=== PATIENT | female | born 1950 | race Caucasian/White ===

== ENCOUNTER 2025-04-22 10:12 | Inpatient (IN) | payer MEDICARE, OTHER ==
[2025-04-22] MEDS: DILTIAZEM 5 MG/ML 5 ML VIAL IVP STA (10:50)
[2025-04-22 11:00] LABS: African American GFR (CKD) 67 (>60 ml/min/1.73 sqM); Anion Gap 26 mmol/L; Blood Urea Nitrogen 25 mg/dL (7-17); Calcium 9.4 mg/dL (8.4-10.2); Chloride 97 mmol/L (98-107); Glucose 140 mg/dL (74-99); Non-African American GFR(CKD) 58 (>60 ml/min/1.73 sqM); Sodium 130 mmol/L (137-145)
[2025-04-22] MEDS: DILTIAZEM 125 MG in DEXTROSE 5% IN WATER 100 ML IV SCH (11:05)
--- NOTE | 2025-04-22 11:08 | XR ---
EXAMINATION TYPE: XR chest 2V DATE OF EXAM: 04/22/2025 11:01 AM COMPARISON: None. CLINICAL INDICATION: Female, 74 years old with history of difficulty breathing, TECHNIQUE: XR chest 2V view(s) obtained. FINDINGS: The heart size is mildly prominent. The pulmonary vasculature is prominent. Diffuse increased lung markings are present. Correlate for congestive heart failure. Small bilateral pleural effusions are present. IMPRESSION: 1. Diffuse increased lung markings with small bilateral pleural effusions. Correlate for congestive h eart failure. Follow-up recommended. [facility], , 04/22/2025 11:06 AM
[2025-04-22 11:09] LABS: NT-Pro-B-Type Natriuretic Pept 6500 pg/mL
[2025-04-22 11:11] LABS: INR 1.9 (<1.2); Prothrombin Time 19.1 sec (10.0-12.5)
[2025-04-22 11:21] LABS: Carbon Dioxide 7 mmol/L (22-30); Potassium 4.8 mmol/L (3.5-5.1)
[2025-04-22 11:22] LABS: ALT 71 U/L (4-34); AST 126 U/L (14-36); Albumin 4.3 g/dL (3.5-5.0); Alkaline Phosphatase 123 U/L (38-126); Magnesium 2.2 mg/dL (1.6-2.3); Total Protein 7.3 g/dL (6.3-8.2)
[2025-04-22 11:49] LABS: Partial Thromboplastin Time 20.8 sec (22.0-30.0)
[2025-04-22 11:58] LABS: Basophils # (A) 0.02 10*3/uL (0.00-0.10); Basophils % (A) 0.2 %; Eosinophils # (A) 0.00 10*3/uL (0.04-0.35); Eosinophils % (A) 0.0 %; HCT 43.9 % (37.2-46.3); HGB 14.6 g/dL (12.0-15.0); Lymphocytes # (A) 0.60 10*3/uL (0.90-5.00); Lymphocytes % (A) 7.3 %; MCH 31.7 pg (27.0-32.0); MCHC 33.3 g/dL (32.0-37.0); MCV 95.4 fL (80.0-97.0); Monocytes # (A) 0.78 10*3/uL (0.20-1.00); Monocytes % (A) 9.5 %; Neutrophils # (A) 6.75 10*3/uL (1.80-7.70); Neutrophils % (A) 82.5 %; Platelet Count 182 10*3/uL (140-440); RBC 4.60 10*6/uL (4.10-5.20); RDW 14.1 % (11.5-14.5); WBC 8.19 10*3/uL (4.50-10.00)
--- NOTE | 2025-04-22 13:42 | CT ---
EXAMINATION TYPE: CT chest angio for PE DATE OF EXAM: 04/22/2025 12:41 PM COMPARISON: None. CLINICAL INDICATION: Female, 74 years old with history of elevated d-dimer, Elevated D-dimer., TECHNIQUE: CT of the chest is performed on a spiral scan at 2 mm thick sections. Study is performed with intravenous contrast timed for evaluation for pulmonary embolism. This will limit additional po rtions of the evaluation. 10mm MIP images reconstructed by the technologist are reviewed on the comp uter in the coronal and sagittal planes. Contrast used:80 ml mL of Isovue 370 with IV Contrast, (none if empty) Oral contrast used: (none if empty) CT DLP: Combined DLP of 895 mGycm, Automated exposure control for dose reduction was used. FINDINGS: No persistent filling defects are evident to suggest an acute pulmonary embolism. No mediastinal or hilar adenopathy enlarged by CT criteria is evident. The ascending aorta diameter at the level of the main pulmonary artery is 3.2 cm. The main pulmonary artery diameter at the bifurcation is 2.6 cm. There is a moderate right pleural effusion. Small left pleural effusion is present. Some compressive atelectasis adjacent pleural effusions. Moderate coronary artery calcifications present. Limited CT sections were through the upper abdomen. Upper abdomen appears unremarkable. IMPRESSION: 1. Moderate right and small left pleural effusion with adjacent compressive atelectasis. 2. No acute pulmonary embolism [facility], , 04/22/2025 1:39 PM
--- NOTE | 2025-04-22 13:47 | CT ---
EXAMINATION TYPE: CT abdomen pelvis w con DATE OF EXAM: 04/22/2025 12:41 PM COMPARISON: None. CLINICAL INDICATION: Female, 74 years old with history of liver failure, Liver failure. TECHNIQUE: Axial images were obtained from above the diaphragm to the pubic rami in the axial plane a t 5 mm thick sections. Reconstructed images are reviewed on the computer in the coronal plane. CONTRAST: 80 ml mL of Isovue 300. Study performed without Oral Contrast DLP: Combined DLP of 895 mGycm, Automated exposure control for dose reduction was used. FINDINGS: Limited CT sections are obtained the lung bases. CT CTA chest report same date. CT ABDOMEN: Liver: There is mild fatty change liver. Spleen: Normal Pancreas: Normal Adrenal glands: The adrenal glands are normal. Gallbladder: Normal. Some minimal fluid may be in the gallbladder bed fossa adjacent to the gallbladd er. Kidneys: No masses are evident. No hydronephrosis is present. Tiny cortical renal cysts on the righ t kidney. Delayed images were obtained through the kidneys, which remain unremarkable. Aorta: Vascular calcification is within the aorta. Abdominal aortic aneurysm is present with AP dime nsion of 3.3 cm in transverse dimension 3.8 cm within the midportion. This terminates above the bifur cation Inferior vena cava: Normal. CT PELVIS: Loops of bowel within the abdomen and pelvis are normal. This study is without oral contrast limi ting bowel evaluation. Appendix: Normal as visualized. Urinary bladder: Normal. Genitourinary structures: Uterus appears unremarkable. Adnexa appear normal. Osseous structures: No suspicious lytic or sclerotic lesions. IMPRESSION: 1. Abdominal aortic aneurysm mid abdominal aorta. Transverse dimension is 3.8 cm. 2. Mild fatty infiltration of the liver. 3. Minimal fluid may be adjacent to the gallbladder the gallbladder bed fossa. Correlate for clinical symptoms of acute cholecystitis. [facility], , 04/22/2025 1:45 PM
[2025-04-22] MEDS ORDERED: NALOXONE 0.4 MG/ML 1 ML VIAL IV PRN (14:48)
--- NOTE | 2025-04-22 14:48 | ED ---
SOB HPI - General Chief Complaint: Shortness of Breath Stated Complaint: Afib/shortness of breath Time Seen by Provider: 04/22/25 10:20 Source: patient, EMS Mode of arrival: EMS Limitations: no limitations - History of Present Illness Initial Comments: 74-year-old female presents emergency department with new onset A-fib. Patient reports that for the past week she has not been feeling well. She went into a clinic and they found that the patient was in A-fib with RVR. She has no history of A-fib. States that she does not have any medical diagnoses, does not take any medications and does not see a doctor. She does report feeling short of breath. States that she has had significant lower extremity edema that started within the past 2 days. She denies any chest pain. No fevers or cough. States that her shortness of breath is worse when she tries to lay flat at night. Patient admits to a glass of wine 4-5 times per week. No abdominal pain. No diarrhea. No other alleviating, precipitating modifying factors - Related Data Previous Rx's Medication Instructions Recorded Amiodarone [Cordarone] 200 mg PO BID #60 tab 04/27/25 Apixaban [Eliquis] 5 mg PO BID #60 tab 04/27/25 Furosemide [Lasix] 40 mg PO DAILY #30 tab 04/27/25 Losartan [Cozaar] 25 mg PO DAILY #30 tab 04/27/25 Metoprolol Tartrate [Lopressor] 50 mg PO TID #90 tab 04/27/25 Spironolactone [Aldactone] 25 mg PO DAILY #30 tab 04/27/25 Allergies Allergy/AdvReac Type Severity Reaction Status Date / Time No Known Allergies Allergy Verified 04/22/25 11:16 Review of Systems ROS Statement: Those systems with pertinent positive or pertinent negative responses have been documented in the HPI. ROS Other: All systems not noted in ROS Statement are negative. Past Medical History Past Medical History: No Reported History History of Any Multi-Drug Resistant Organisms: None Reported Past Surgical History: No Surgical Hx Reported Past Psychological History: No Psychological Hx Reported Smoking Status: Former smoker Past Alcohol Use History: Rare Past Drug Use History: None Reported - Past Family History Brother(s) Additional Family Medical History / Comment(s): brain aneurysm Father Family Medical History: Myocardial Infarction ([place]) General Exam Limitations: no limitations General appearance: alert, in no apparent distress Head exam: Present: atraumatic, normocephalic, normal inspection Eye exam: Present: normal appearance, PERRL, EOMI. Absent: scleral icterus, conjunctival injection, periorbital swelling ENT exam: Present: normal exam, mucous membranes moist Neck exam: Present: normal inspection. Absent: tenderness, meningismus, lympha denopathy Respiratory exam: Present: rales, decreased breath sounds. Absent: respiratory distress, wheezes, rhonchi, stridor Cardiovascular Exam: Present: tachycardia, irregular rhythm, normal heart sounds. Absent: systolic murmur, diastolic murmur, rubs, gallop, clicks GI/Abdominal exam: Present: soft, normal bowel sounds. Absent: distended, tenderness, guarding, rebound, rigid Extremities exam: Present: full ROM, normal capillary refill, pedal edema. Absent: tenderness, joint swelling, calf tenderness Back exam: Present: normal inspection Neurological exam: Present: alert, oriented X3, CN II-XII intact Psychiatric exam: Present: normal affect, normal mood Skin exam: Present: warm, dry, intact, normal color. Absent: rash Course Vital Signs 04/22/25 04/22/25 04/22/25 10:14 10:22 10:23 Temperature 97.9 F Pulse Rate 56 L 154 H Pulse Rate [ Director Cardiovascular ] Respiratory 20 22 Rate Blood Pressure 229/193 O2 Sat by Pulse 96 95 Oximetry 04/22/25 04/22/25 04/22/25 10:38 10:50 11:35 Temperature Pulse Rate 168 H 151 H Pulse Rate [ 183 H Director Cardiovascular ] Respiratory 19 Rate Blood Pressure 135/102 O2 Sat by Pulse 96 Oximetry 04/22/25 04/22/25 04/22/25 12:46 13:40 14:40 Temperature Pulse Rate 146 H 136 H 106 H Pulse Rate [ Director Cardiovascular ] Respiratory 25 H 19 18 Rate Blood Pressure 142/127 104/89 149/114 O2 Sat by Pulse 98 96 Oximetry 04/22/25 15:43 Temperature Pulse Rate 112 H Pulse Rate [ Director Cardiovascular ] Respiratory 20 Rate Blood Pressure 154/126 O2 Sat by Pulse 95 Oximetry Medical Decision Making - Medical Decision Making Was pt. sent in by a medical professional or institution (, PA, MACHINE OPERATOR HOP PICKER, urgent care, hospital, or custodial...) When possible be specific @ -Patient was sent in from the clinic Did you speak to anyone other than the patient for history (EMS, parent, family, police, friend...)? What history was obtained from this source @ -Spoke with for history Did you review nursing and triage notes (agree or disagree)? Why? @ -I reviewed and agree with nursing and triage notes Were old charts reviewed (outside hosp., previous admission, EMS record, old EKG, old radiological studies, urgent care reports/EKG's, custodial records)? Report findings @ -No old charts were reviewed Differential Diagnosis (chest pain, altered mental status, abdominal pain women, abdominal pain men, vaginal bleeding, weakness, fever, dyspnea, syncope, headache, dizziness, GI bleed, back pain, seizure, CVA, palpatations, mental health, musculoskeletal)? @ -Differential Palpitations Ventricular arrhythmias, atrial arrhythmias, myocardial infarction, anemia, thyrotoxicosis, electrolyte imbalance, hypokalemia, pulmonary embolism, pulmonary disease, drugs, alcohol, anxiety, stress.... This is not meant to be an all-inclusive list. EKG interpreted by me (3pts min.). @ -Yes and demonstrates A-fib with a rate of 176. QRS 133. QTc of 376. No acute ST segment elevations or depressions. Right bundle branch block. X-rays interpreted by me (1pt min.). @ -Yes which demonstrates pulmonary vascular congestion CT interpreted by me (1pt min.). @ -Yes which demonstrates pulmonary vascular congestion and minimal aortic aneurysm U/S interpreted by me (1pt. min.). @ -None done What testing was considered but not performed or refused? (CT, X-rays, U/S, labs)? Why? @ -None What meds were considered but not given or refused? Why? @ -None Did you discuss the management of the patient with other professionals (professionals i.e. DrJosh, PA, MACHINE OPERATOR HOP PICKER, lab, RT, psych nurse, clinical social work therapist, colleter, teacher, earth science technical officer, supervisor case loading)? Give summary @ -Spoke with Uzair from [facility], [place] who will admit the patient. Also spoke with Dr. Shukla from ICU Was smoking cessation discussed for >3mins.? @ -No Was critical care preformed (if so, how long)? @ -30 minutes for management of rapid A-fib Were there social determinants of health that impacted care today? How? (Homelessness, low income, unemployed, alcoholism, drug addiction, transportation, low edu. Level, literacy, decrease access to med. care, detention, rehab)? @ -No Was there de-escalation of care discussed even if they declined (Discuss DNR or withdrawal of care, Hospice)? DNR status @ -No What co-morbidities impacted this encounter? (DM, HTN, Smoking, COPD, CAD, Cancer, CVA, ARF, Chemo, Hep., AIDS, mental health diagnosis, sleep apnea, morbid obesity)? @ -None Was patient admitted / discharged? Hospital course, mention meds given and route, prescriptions, significant lab abnormalities, going to OR and other pertinent info. @ -Upon arrival patient seen and evaluated in bed 1. Thorough history and physical exam was performed. Patient placed on continuous pulse ox and cardiac monitoring. Laboratory studies are conducted. Chest x-ray was performed. Patient is sent over for CT of her chest, abdomen and pelvis. Gallbladder ultrasound is ordered. Patient is started on a Cardizem drip with improvement in her heart rate. Patient requires admission. Spoke with Uzair from [facility], [place] who will admit the patient as well as Dr. Hager from the ICU Undiagnosed new problem with uncertain prognosis? @ -No Drug Therapy requiring intensive monitoring for toxicity (Heparin, Nitro, Insulin, Cardizem)? @ -Cardizem Were any procedures done? @ -No Diagnosis/symptom? @ -Acute respiratory insufficiency, new onset congestive heart failure, new onset A-fib with RVR Acute, or Chronic, or Acute on Chronic? @ -Acute Uncomplicated (without systemic symptoms) or Complicated (systemic symptoms)? @ -Complicated Side effects of treatment? @ -No Exacerbation, Progression, or Severe Exacerbation? @ -No Poses a threat to life or bodily function? How? (Chest pain, [place], [place], pneumonia, PE, COPD, DKA, ARF, appy, cholecystitis, CVA, Diverticulitis, Homicidal, Suicidal, threat to staff... and all critical care pts) @ -Yes this patient is in heart failure with rapid A-fib - Lab Data Result diagrams: 04/25/25 05:25 04/27/25 07:08 Lab Results 07/24/25 07/24/25 07/24/25 Range/Units 10:31 10:31 10:31 WBC (4.50-10.00) 10*3/uL RBC (4.10-5.20) 10*6/uL Hgb (12.0-15.0) g/dL Hct (37.2-46.3) % MCV (80.0-97.0) fL MCH (27.0-32.0) pg MCHC (32.0-37.0) g/dL Plt Count (140-440) 10*3/uL MPV (9.5-12.2) fL Immature Gran % (Auto) % Neutrophils % % Lymphocytes % % Monocytes % % Eosinophils % % Basophils % % Immature Gran # (0.00-0.04) 10*3/uL Neutrophils # (1.80-7.70) 10*3/uL Lymphocytes # (0.90-5.00) 10*3/uL Monocytes # (0.20-1.00) 10*3/uL Eosinophils # (0.04-0.35) 10*3/uL Basophils # (0.00-0.10) 10*3/uL PT 19.1 H (10.0-12.5) sec INR 1.9 H (<1.2) APTT 20.8 L (22.0-30.0) sec D-Dimer 5.92 H (<0.60) mg/L FEU Sodium 130 L (137-145) mmol/L Potassium 4.8 (3.5-5.1) mmol/L Chloride 97 L (98-107) mmol/L Carbon Dioxide 7 L* (22-30) mmol/L Anion Gap 26 mmol/L BUN 25 H (7-17) mg/dL Creatinine 0.97 (0.52-1.04) mg/dL Est GFR (CKD-EPI)AfAm 67 (>60 ml/min/1.73 sqM) Est GFR (CKD-EPI)NonAf 58 (>60 ml/min/1.73 sqM) Glucose 140 H (74-99) mg/dL Lactic Ac Sepsis Rflx Plasma Lactic Acid Chung 10.4 H* (0.7-2.0) mmol/L Calcium 9.4 (8.4-10.2) mg/dL Magnesium 2.2 (1.6-2.3) mg/dL Total Bilirubin 2.8 H (0.2-1.3) mg/dL AST 126 H (14-36) U/L ALT 71 H (4-34) U/L Alkaline Phosphatase 123 (38-126) U/L Troponin I (0.000-0.034) ng/mL NT-Pro-B Natriuret Pep 6500 pg/mL Total Protein 7.3 (6.3-8.2) g/dL Albumin 4.3 (3.5-5.0) g/dL TSH (0.465-4.680) mIU/L 04/22/25 04/22/25 04/22/25 Range/Units 10:31 10:31 11:28 WBC (4.50-10.00) 10*3/uL RBC (4.10-5.20) 10*6/uL Hgb (12.0-15.0) g/dL Hct (37.2-46.3) % MCV (80.0-97.0) fL MCH (27.0-32.0) pg MCHC (32.0-37.0) g/dL Plt Count (140-440) 10*3/uL MPV (9.5-12.2) fL Immature Gran % (Auto) % Neutrophils % % Lymphocytes % % Monocytes % % Eosinophils % % Basophils % % Immature Gran # (0.00-0.04) 10*3/uL Neutrophils # (1.80-7.70) 10*3/uL Lymphocytes # (0.90-5.00) 10*3/uL Monocytes # (0.20-1.00) 10*3/uL Eosinophils # (0.04-0.35) 10*3/uL Basophils # (0.00-0.10) 10*3/uL PT (10.0-12.5) sec INR (<1.2) APTT (22.0-30.0) sec D-Dimer (<0.60) mg/L FEU Sodium (137-145) mmol/L Potassium (3.5-5.1) mmol/L Chloride (98-107) mmol/L Carbon Dioxide (22-30) mmol/L Anion Gap mmol/L BUN (7-17) mg/dL Creatinine (0.52-1.04) mg/dL Est GFR (CKD-EPI)AfAm (>60 ml/min/1.73 sqM) Est GFR (CKD-EPI)NonAf (>60 ml/min/1.73 sqM) Glucose (74-99) mg/dL Lactic Ac Sepsis Rflx Y Plasma Lactic Acid Chung (0.7-2.0) mmol/L Calcium (8.4-10.2) mg/dL Magnesium (1.6-2.3) mg/dL Total Bilirubin (0.2-1.3) mg/dL AST (14-36) U/L ALT (4-34) U/L Alkaline Phosphatase (38-126) U/L Troponin I 0.078 H* (0.000-0.034) ng/mL NT-Pro-B Natriuret Pep pg/mL Total Protein (6.3-8.2) g/dL Albumin (3.5-5.0) g/dL TSH 1.930 (0.465-4.680) mIU/L 04/22/25 Range/Units 11:51 WBC 8.19 (4.50-10.00) 10*3/uL RBC 4.60 (4.10-5.20) 10*6/uL Hgb 14.6 (12.0-15.0) g/dL Hct 43.9 (37.2-46.3) % MCV 95.4 (80.0-97.0) fL MCH 31.7 (27.0-32.0) pg MCHC 33.3 (32.0-37.0) g/dL Plt Count 182 (140-440) 10*3/uL MPV 12.3 H (9.5-12.2) fL Immature Gran % (Auto) 0.5 % Neutrophils % 82.5 % Lymphocytes % 7.3 % Monocytes % 9.5 % Eosinophils % 0.0 % Basophils % 0.2 % Immature Gran # 0.04 (0.00-0.04) 10*3/uL Neutrophils # 6.75 (1.80-7.70) 10*3/uL Lymphocytes # 0.60 L (0.90-5.00) 10*3/uL Monocytes # 0.78 (0.20-1.00) 10*3/uL Eosinophils # 0.00 L (0.04-0.35) 10*3/uL Basophils # 0.02 (0.00-0.10) 10*3/uL PT (10.0-12.5) sec INR (<1.2) APTT (22.0-30.0) sec D-Dimer (<0.60) mg/L FEU Sodium (137-145) mmol/L Potassium (3.5-5.1) mmol/L Chloride (98-107) mmol/L Carbon Dioxide (22-30) mmol/L Anion Gap mmol/L BUN (7-17) mg/dL Creatinine (0.52-1.04) mg/dL Est GFR (CKD-EPI)AfAm (>60 ml/min/1.73 sqM) Est GFR (CKD-EPI)NonAf (>60 ml/min/1.73 sqM) Glucose (74-99) mg/dL Lactic Ac Sepsis Rflx Plasma Lactic Acid Chung (0.7-2.0) mmol/L Calcium (8.4-10.2) mg/dL Magnesium (1.6-2.3) mg/dL Total Bilirubin (0.2-1.3) mg/dL AST (14-36) U/L ALT (4-34) U/L Alkaline Phosphatase (38-126) U/L Troponin I (0.000-0.034) ng/mL NT-Pro-B Natriuret Pep pg/mL Total Protein (6.3-8.2) g/dL Albumin (3.5-5.0) g/dL TSH (0.465-4.680) mIU/L Disposition Clinical Impression: New onset a-fib, Atrial fibrillation with RVR, Lactic acidosis, Transaminitis, Elevated INR, Congestive heart failure Disposition: ADMITTED IP TO THIS [facility] Condition: Critical Is patient prescribed a controlled substance at d/c from ED?: No Time of Disposition: 14:47 Decision to Admit Reason: Admit from EC Decision Date: 04/22/25 Decision Time: 14:47
[2025-04-22] MEDS ORDERED: MELATONIN 3 MG TABLET PO PRN (14:52)
[2025-04-22] MEDS ORDERED: DOCUSATE 100 MG CAP PO PRN (14:52)
[2025-04-22] MEDS ORDERED: ONDANSETRON 4 MG/2 ML VIAL IVP PRN (14:52)
--- NOTE | 2025-04-22 15:26 | P.HPIM ---
History of Present Illness H&P Date: 04/22/25 74 year old F with no significant PMH (has not seen a physician in 20+ years) presents to the ED after being sent from urgent care. She reports dry cough, shortness of breath and wheezing that has been ongoing for the past week. Symptoms initially attributed to change in weather but symptoms did not resolve. Reports PPD smoking for 20 years but quit 26 years ago. Drinks 1 glass of wine 4-5 times a week. She denies any alcohol withdrawal symptoms. Drinks 2 cups of coffee daily. Denies chest pain. No nausea or vomiting. No fever or chills. No abdominal pain, changes in urination or bowel habits. In the ED she underwent extensive evaluation. BP 229/193, HR 56 (as high as 183), T 97.9F, RR 20, 96% on RA. CBC, Coag panel, CMP significant for PT 19.1, INR 1.9, APTT 20.8, Na 130, Cl 97, bicarb 7, BUN 25, glu 140, T. Bili 2.8, AST 126, ALT 71. Lactic acid 10.4. BNP 6500. D-Dimer 5.92. CXR pulmonary vascular congestion. CTA chest neg PE, moderate right and left pleural effusion. CT AP shows abdominal aortic aneurysm 3.8 cm, mild fatty liver infiltration, minimal fluid adjacent to the GB. Patient was started on a Cardizem drip and admitted to ICU for further workup and management. General: no distress, appears at stated age Derm: warm, dry Head: atraumatic, normocephalic, symmetric Eyes: EOMI Mouth: no lip lesion, mucus membranes moist Cardiovascular: S1 S2 irreg tachy. No murmur. Lungs: Decreased BS bilaterally, no accessory muscle use Abd: Soft. Non tender to palpation Ext: no gross muscle atrophy, 2+ BL LE edema, no contractures Neuro: No FND Psych: AO x 3, sluggish to respond Based on my assessment of this patient, this patient meets a high complexity level of care. Hypertensive emergency: Started on Cardizem drip at 5 mg/hr. Goal to drop MAP by 10-20% in the first hour followed by target BP of 160/100-110 within the first hour. Admit to ICU. Telemetry monitoring. Cardiology and [place] consulted. Atrial fibrillation with RVR: Cardizem drip as above. Start heparin drip at 12 units/kg/hr. Obtain TSH/FT4. Obtain Echo. Cardiology is consulted. Troponin elevation: Likely demand ischemia from A-Fib. Trend Trop/EKG. Management as above. Hyperbiliruibinemia with Transaminitis: Benign abdominal exam. CT AP shows abdominal aortic aneurysm 3.8 cm, mild fatty liver infiltration, minimal fluid adjacent to the GB. Obtain direct bilirubin, GGT, Acute Hep panel, Lipid panel. Obtain GB US. Lactic acidosis: Possibly due to demand and liver dysfunction. Trend until negat misti. Moderate pleural effusion: Lasix 60 mg IV x 1. Obtain Echo to rule out HF. Hyponatremia: Hypervolemic. Trial of Lasix. Monitor. Elevated D-Dimer: CTA chest neg. Obtain venous duplex to rule out DVT. CODE STATUS: FULL CODE. DVT Prophylaxis: Hep drip GI Prophylaxis: Designated medical POA if patient is not able to make medical decisions for themselves: I have reviewed the following retirement sales consultant notes: ED note. I have reviewed the results of the following tests: As above. I have ordered the following tests: As above. I have discussed the care of this patient with the following independent historian: I have independently interpreted the following test below: CXR I have discussed the management of this patient with the following physician: Dr. Del Castillo Past Medical History Past Medical History: No Reported History History of Any Multi-Drug Resistant Organisms: None Reported Past Surgical History: No Surgical Hx Reported Past Psychological History: No Psychological Hx Reported Smoking Status: Former smoker Past Alcohol Use History: Rare Past Drug Use History: None Reported Medications and Allergies Home Medications Medication Instructions Recorded Confirmed Type No Known Home Medications 04/22/25 04/22/25 History Allergies Allergy/AdvReac Type Severity Reaction Status Date / Time No Known Allergies Allergy Verified 04/22/25 11:16 Physical Exam Vitals: Vital Signs Temp Pulse Pulse Resp BP Pulse Ox 04/22/25 14:40 106 H 18 149/114 96 04/22/25 13:40 136 H 19 104/89 98 04/22/25 12:46 146 H 25 H 142/127 04/22/25 11:35 151 H 19 135/102 96 04/22/25 10:50 168 H 04/22/25 10:38 183 H 04/22/25 10:23 22 04/22/25 10:22 154 H 95 04/22/25 10:14 97.9 F 56 L 20 229/193 96 Intake and Output 04/21/25 04/22/25 04/22/25 22:59 06:59 14:59 Other: Weight 54.431 kg Results CBC & Chem 7: 04/22/25 11:51 04/22/25 10:31 Labs: Abnormal Lab Results - Last 24 Hours (Table) 04/22/25 04/22/25 04/22/25 Range/Units 10:31 10:31 10:31 MPV (9.5-12.2) fL Lymphocytes # (0.90-5.00) 10*3/uL Eosinophils # (0.04-0.35) 10*3/uL PT 19.1 H (10.0-12.5) sec INR 1.9 H (<1.2) APTT 20.8 L (22.0-30.0) sec D-Dimer 5.92 H (<0.60) mg/L FEU Sodium 130 L (137-145) mmol/L Chloride 97 L (98-107) mmol/L Carbon Dioxide 7 L* (22-30) mmol/L BUN 25 H (7-17) mg/dL Glucose 140 H (74-99) mg/dL Plasma Lactic Acid Chung 10.4 H* (0.7-2.0) mmol/L Total Bilirubin 2.8 H (0.2-1.3) mg/dL AST 126 H (14-36) U/L ALT 71 H (4-34) U/L Troponin I (0.000-0.034) ng/mL 04/22/25 04/22/25 Range/Units 10:31 11:51 MPV 12.3 H (9.5-12.2) fL Lymphocytes # 0.60 L (0.90-5.00) 10*3/uL Eosinophils # 0.00 L (0.04-0.35) 10*3/uL PT (10.0-12.5) sec INR (<1.2) APTT (22.0-30.0) sec D-Dimer (<0.60) mg/L FEU Sodium (137-145) mmol/L Chloride (98-107) mmol/L Carbon Dioxide (22-30) mmol/L BUN (7-17) mg/dL Glucose (74-99) mg/dL Plasma Lactic Acid Chung (0.7-2.0) mmol/L Total Bilirubin (0.2-1.3) mg/dL AST (14-36) U/L ALT (4-34) U/L Troponin I 0.078 H* (0.000-0.034) ng/mL
[2025-04-22] MEDS: HEPARIN SODIUM 1,000 UN/ML (10ML VL) IV ONE (15:39)
[2025-04-22 15:58] LABS: Glucose,Whole Blood 131 mg/dL (70-110)
--- NOTE | 2025-04-22 16:18 | US ---
EXAMINATION TYPE: US gallbladder DATE OF EXAM: 04/22/2025 COMPARISON: CT 04/22/2025 CLINICAL INDICATION: Female, 74 years old with history of pericholecystic fluid; Possible pericholecy stic fluid seen on CT. No abdominal pain. TECHNIQUE: Grayscale and color Doppler imaging of the right upper quadrant. FINDINGS: EXAM MEASUREMENTS: Liver Length: 15.0 cm Gallbladder Wall: 0.28 cm CBD: 0.55 cm, color Doppler imaging was utilized to isolate the common bile duct for measurement. 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 Gallbladder: *Hyperechoic area seen that appears to be attached to the gallbladder wall: 0.6 x 0.4 x 0.4 cm. Adherent gallstone or polyp. fluid seen adjacent to GB: 1.2 x 0.4 x 0.4 cm., Correlates with CT findings Evidence for sonographic Connors's sign: No CBD: wnl Right Kidney: No hydronephrosis or masses seen Incidental finding - probable right pleural effusion seen in liver imaging. IMPRESSION: 1. Gallbladder polyp versus adherent gallstone. 2. Minimal fluid may be adjacent to the gallbladder. Cholecystitis should be considered. No additiona l findings suggest acute cholecystitis evident. 3. Incidental note right pleural effusion [facility], , 04/22/2025 4:15 PM
[2025-04-22] MEDS: FUROSEMIDE 10 MG/ML 10 ML VIAL IV STA (16:49)
[2025-04-22] MEDS: HEPARIN SOD,PORK IN 0.45% NACL 25,000 UNIT in 0.45% NACL 1 250ML.BAG IV SCH (16:53)
--- NOTE | 2025-04-22 17:54 | US ---
EXAMINATION TYPE: US venous doppler duplex LE DATE OF EXAM: 04/22/2025 5:37 PM COMPARISON: NONE CLINICAL INDICATION: Female, 74 years old with history of swelling; no hx dvt. swelling at ankles at night for 1 week. TECHNIQUE: The lower extremity deep venous system is examined utilizing real time linear array sonog blake with graded compression, doppler sonography and color-flow sonography. Grayscale, color doppler , spectral doppler imaging performed of the deep veins of the lower extremities FINDINGS: SIDE PERFORMED: Bilateral VESSELS IMAGED: Common Femoral Vein Deep Femoral Vein Greater Saphenous Vein * Femoral Vein Popliteal Vein Small Saphenous Vein * Proximal Calf Veins (* superficial vessels) Right Leg: appears negative for dvt; There is normal flow, compressibility, vascular waveforms. Left Leg: appears negative for dvt; There is normal flow, compressibility, vascular waveforms. IMPRESSION: No evidence for deep vein thrombosis. [facility], , 04/22/2025 5:52 PM
[2025-04-23] MEDS: HEPARIN SODIUM 1,000 UN/ML (10ML VL) IV PRN (01:03)
[2025-04-23 06:41] LABS: Basophils # (A) 0.06 10*3/uL (0.00-0.10); Basophils % (A) 0.7 %; Eosinophils # (A) 0.10 10*3/uL (0.04-0.35); Eosinophils % (A) 1.1 %; HCT 40.5 % (37.2-46.3); HGB 13.7 g/dL (12.0-15.0); Lymphocytes # (A) 1.50 10*3/uL (0.90-5.00); Lymphocytes % (A) 17.1 %; MCH 31.6 pg (27.0-32.0); MCHC 33.8 g/dL (32.0-37.0); MCV 93.5 fL (80.0-97.0); Monocytes # (A) 0.92 10*3/uL (0.20-1.00); Monocytes % (A) 10.5 %; Neutrophils # (A) 6.17 10*3/uL (1.80-7.70); Neutrophils % (A) 70.3 %; Platelet Count 165 10*3/uL (140-440); RBC 4.33 10*6/uL (4.10-5.20); RDW 14.2 % (11.5-14.5); WBC 8.78 10*3/uL (4.50-10.00)
[2025-04-23 06:57] LABS: INR 1.5 (<1.2); Prothrombin Time 16.0 sec (10.0-12.5)
[2025-04-23 06:59] LABS: ALT 91 U/L (4-34); AST 148 U/L (14-36); African American GFR (CKD) 89 (>60 ml/min/1.73 sqM); Albumin 3.3 g/dL (3.5-5.0); Alkaline Phosphatase 77 U/L (38-126); Anion Gap 8 mmol/L; Blood Urea Nitrogen 24 mg/dL (7-17); Calcium 8.5 mg/dL (8.4-10.2); Carbon Dioxide 26 mmol/L (22-30); Chloride 100 mmol/L (98-107); Glucose 90 mg/dL (74-99); Non-African American GFR(CKD) 77 (>60 ml/min/1.73 sqM); Potassium 3.3 mmol/L (3.5-5.1); Sodium 134 mmol/L (137-145); Total Protein 6.0 g/dL (6.3-8.2)
[2025-04-23 07:01] LABS: Bilirubin, Delta 0.9 mg/dL (0.0-0.2); Bilirubin,Unconjugated 1.1 mg/dL (0.0-1.1)
[2025-04-23] MEDS ORDERED: Potassium Replacement Protocol 1 EACH MISC MISCELLANE PRN (07:05)
--- NOTE | 2025-04-23 07:16 | P.CRDCN ---
History of Present Illness History of present illness: HISTORY OF PRESENTING ILLNESS This is a pleasant 74-year-old with past medical history significant for nothing other than occasional alcohol use who presents secondary to increasing shortness of breath. Patient states over the last week she has been feeling more short of breath and also having some increasing lower extremity edema. She states 2 to 3 weeks ago she felt fairly normal. She felt worsening shortness of breath and therefore went to urgent care and then was recommended to go immediately to the ER. She was found to be in A-fib with RVR with heart rates in the 170s with r ight bundle branch morphology and nonspecific ST depressions. Troponins mildly elevated 0.07 As well as severe lactic acidosis and acidosis with initial lactic acid of 10 and bicarb of 7. She was placed on Cardizem drip with improvement in heart rates and feels much better. Additionally mildly elevated liver enzymes 148 for AST and 91 for ALT with total bilirubin 2.1. She denies any abdominal pain. Denies any GI history. She has not seen a doctor in a few years. She does not smoke, occasional alcohol, no illicit drugs. She did have a CT PE protocol secondary to elevated D-dimer at 5.9 which showed no PE. CT abdomen pelvis showed abdominal aortic aneurysm measuring 3.8 cm as well as mild fatty infiltration of the liver. CT chest showed bilateral pleural effusions. Gallbladder ultrasound showed gallbladder polyp versus gallstone. She is currently on a Cardizem drip at 10. REVIEW OF SYSTEMS At the time of my exam: CONSTITUTIONAL: Denies fever or chills. CARDIOVASCULAR: Denies chest pain, +shortness of breath,+ orthopnea, no PND or palpitations. RESPIRATORY: Denies cough. GASTROINTESTINAL: Denies abdominal pain, diarrhea, constipation, nausea or vomiting. MUSCULOSKELETAL: Denies myalgias. NEUROLOGIC: Denies numbness, tingling or weakness. ENDOCRINE: Denies fatigue, weight change, polydipsia or polyurina. GENITOURINARY: Denies burning, hematuria or urgency with micturation. HEMATOLOGIC: Denies history of anemia or bleeding. PHYSICAL EXAMINATION Vital signs reviewed. CONSTITUTIONAL: No apparent distress. HEENT: Head is normocephalic. Pupils are equal, round. Sclerae anicteric. Mucous membranes of the mouth are moist. No JVD. No carotid bruit. CHEST EXAMINATION: +crackles HEART EXAMINATION: Irregular rate and rhythm. S1, S2 heard. No murmurs, gallops or rub. ABDOMEN: Soft, nontender. Positive bowel sounds. EXTREMITIES: 2+ peripheral pulses, no lower extremity edema and no calf tenderness. NEUROLOGIC EXAMINATION: Patient is awake, alert and oriented x3. ASSESSMENT New onset A-fib with RVR Acute on chronic heart failure, unknown systolic versus diastolic Severe lactic acidosis Severe metabolic acidosis with initial bicarb of 7 Non-STEMI likely type II mechanism related to A-fib with RVR Abdominal aortic aneurysm Poor previous follow-up Elevated liver enzymes most likely shock liver PLAN Most all of her presentation appears more related to A-fib with RVR with improvement in clinical status and symptoms as well as blood work with rate control's. We discussed more long-term management with rhythm control. Mildly elevated liver enzymes with no significant pathology noted on imaging and we will start amiodarone. We discussed MARTHA cardioversion and patient agreeable. Likely outpatient stress testing for elevated troponins appear more type II mechanism. Transition to NOAC once remainder of metabolic derangements stabilized. Continue with diuresis. Past Medical History Past Medical History: No Reported History History of Any Multi-Drug Resistant Organisms: None Reported Past Surgical History: No Surgical Hx Reported Past Anesthesia/Blood Transfusion Reactions: No Reported Reaction Past Psychological History: No Psychological Hx Reported Smoking Status: Former smoker Past Alcohol Use History: Rare Past Drug Use History: None Reported - Past Family History Brother(s) Additional Family Medical History / Comment(s): brain aneurysm Father Family Medical History: Myocardial Infarction (ND) Medications and Allergies Home Medications Medication Instructions Recorded Confirmed Type No Known Home Medications 04/22/25 04/22/25 History Allergies Allergy/AdvReac Type Severity Reaction Status Date / Time No Known Allergies Allergy Verified 04/22/25 11:16 Physical Exam Vitals: Vital Signs Temp Pulse Pulse Resp BP Pulse Ox 04/23/25 07:00 74 30 H 141/127 92 L 04/23/25 06:00 76 15 141/77 94 L 04/23/25 05:00 86 18 139/80 92 L 04/23/25 04:30 73 15 134/70 94 L 04/23/25 04:00 88 13 136/84 94 L 04/23/25 03:30 80 19 146/98 93 L 04/23/25 03:00 85 18 125/85 94 L 04/23/25 02:30 81 16 129/70 95 04/23/25 02:00 86 16 124/65 95 04/23/25 01:30 79 17 117/80 95 04/23/25 01:00 68 17 139/75 94 L 04/23/25 00:30 93 20 135/88 96 04/23/25 00:00 97.9 F 86 18 140/82 95 04/22/25 23:30 89 16 129/71 96 04/22/25 23:00 84 28 H 108/77 95 04/22/25 22:30 83 18 147/79 94 L 04/22/25 22:03 82 19 150/91 95 04/22/25 22:00 90 18 129/72 95 04/22/25 21:30 77 14 114/68 97 04/22/25 21:00 80 18 117/71 95 04/22/25 20:30 93 19 142/81 96 04/22/25 20:00 98.7 F 90 22 136/83 97 04/22/25 19:30 86 21 144/77 94 L 04/22/25 19:00 105 H 27 H 138/89 94 L 04/22/25 18:45 104 H 20 148/91 95 04/22/25 18:30 98 37 H 152/79 95 04/22/25 18:15 98 26 H 156/94 96 04/22/25 18:00 96 19 156/94 95 04/22/25 17:45 117 H 37 H 95 04/22/25 17:30 133 H 24 96 04/22/25 17:15 39 H 96 04/22/25 17:10 76 29 H 130/111 96 04/22/25 16:00 97.8 F 160 H 25 H 154/126 97 04/22/25 15:43 112 H 20 154/126 95 04/22/25 14:40 106 H 18 149/114 96 04/22/25 13:40 136 H 19 104/89 98 04/22/25 12:46 146 H 25 H 142/127 04/22/25 11:35 151 H 19 135/102 96 04/22/25 10:50 168 H 04/22/25 10:38 183 H 04/22/25 10:23 22 04/22/25 10:22 154 H 95 04/22/25 10:14 97.9 F 56 L 20 229/193 96 Intake and Output 04/22/25 04/23/25 04/23/25 22:59 06:59 14:59 Intake Total 143.25 139.704 5 Output Total 2120 550 30 Balance -1976.75 -410.296 -25 Intake: IV 35 40 5 0.9 @ 5 mls/hr 35 40 5 Intake, IV Titration 108.25 99.704 Amount Diltiazem 125 mg In 108.25 46.25 Dextrose 5% in Water 100 ml @ 5 MG/HR 5 mls/hr IV .Q24H [facility] Rx#:[id number] Heparin Sod,Pork in 0.45% 53.454 NaCl 25,000 unit In 0.45 % NaCl 1 250ml.bag @ 12 UNITS/KG/HR 6.532 mls/hr IV .Q24H [facility] Rx#: [id number] Output: Urine 2120 550 30 Other: Voiding Method Indwelling Catheter Indwelling Catheter Weight 54.431 kg 61.9 kg Results 04/23/25 06:25 04/23/25 06:30 Cardiac Enzymes 04/22/25 04/22/25 04/22/25 Range/Units 10:31 10:31 15:09 AST 126 H (14-36) U/L Troponin I 0.078 H* 0.071 H* (0.000-0.034) ng/mL 04/22/25 04/23/25 Range/Units 18:14 06:30 AST 148 H (14-36) U/L Troponin I 0.086 H* (0.000-0.034) ng/mL Coagulation 04/22/25 04/22/25 04/23/25 Range/Units 10:31 23:30 06:25 PT 19.1 H 16.0 H (10.0-12.5) sec APTT 20.8 L 35.1 H (22.0-30.0) sec 04/23/25 Range/Units 06:25 PT (10.0-12.5) sec APTT 45.6 H (22.0-30.0) sec CBC 04/22/25 04/23/25 Range/Units 11:51 06:25 WBC 8.19 8.78 (4.50-10.00) 10*3/uL RBC 4.60 4.33 (4.10-5.20) 10*6/uL Hgb 14.6 13.7 (12.0-15.0) g/dL Hct 43.9 40.5 (37.2-46.3) % Plt Count 182 165 (140-440) 10*3/uL Comprehensive Metabolic Panel 04/22/25 04/23/25 04/23/25 Range/Units 10:31 06:25 06:30 Sodium 130 L 134 L (137-145) mmol/L Potassium 4.8 3.3 L (3.5-5.1) mmol/L Chloride 97 L 100 (98-107) mmol/L Carbon Dioxide 7 L* 26 (22-30) mmol/L BUN 25 H 24 H (7-17) mg/dL Creatinine 0.97 0.77 (0.52-1.04) mg/dL Glucose 140 H 90 (74-99) mg/dL Calcium 9.4 8.5 (8.4-10.2) mg/dL Unconjugated Bilirubin 1.1 (0.0-1.1) mg/dL AST 126 H 148 H (14-36) U/L ALT 71 H 91 H (4-34) U/L Alkaline Phosphatase 123 77 (38-126) U/L Total Protein 7.3 6.0 L (6.3-8.2) g/dL Albumin 4.3 3.3 L (3.5-5.0) g/dL Current Medications Generic Name Dose Route Start Last Admin Trade Name Freq PRN Reason Stop Dose Admin Docusate Sodium 100 mg 04/22/25 14:52 Docusate 100 Mg Cap PO BID PRN Constipation Heparin Sodium (Porcine) 0 unit 04/22/25 14:56 04/23/25 01:03 Heparin Sodium 1,000 Un/Ml (10ml Vl) IV 1,350 unit PER PROTOCOL PRN Administration Low PTT Protocol Diltiazem HCl 125 mg/ Dextrose 125 mls @ 5 mls/hr 04/22/25 10:45 04/23/25 01:02 /Water IV 10 mg/hr .Q24H [facility] 10 mls/hr Titration Protocol 5 MG/HR Heparin Sodium/Sodium Chloride 250 mls @ 6.532 mls/hr 04/22/25 15:00 04/23/25 01:04 25,000 unit/ Sodium Chloride IV 14 units/kg/hr .Q24H M[facility] AN[facility] 7.62 mls/hr Titration Protocol 12 UNITS/KG/HR Amiodarone HCl 150 mg/ 103 mls @ 618 mls/hr 04/23/25 07:09 Dextrose/Water IV 04/23/25 07:18 .Q10M ONE Amiodarone HCl 300 mg/ 256 mls @ 128 mls/hr 04/23/25 07:09 Dextrose/Water IV 04/23/25 09:08 .Q2H ONE Melatonin 3 mg 04/22/25 14:52 Melatonin 3 Mg Tablet PO HS PRN Insomnia Miscellaneous Information 1 each 04/23/25 07:05 Potassium Replacement Protocol 1 Each Misc MISCELLANE DAILY PRN Per Protocol Protocol Naloxone HCl 0.2 mg 04/22/25 14:48 Naloxone 0.4 Mg/Ml 1 Ml Vial IV Q2M PRN Opioid Reversal Ondansetron HCl 4 mg 04/22/25 14:52 Ondansetron 4 Mg/2 Ml Vial IVP Q8HR PRN Nausea And Vomiting Potassium Chloride 20 meq 04/23/25 08:00 Potassium Chloride Er 20 Meq Tab.Er PO 04/23/25 09:01 Q1HR [facility] Protocol Intake and Output 04/22/25 04/23/25 04/23/25 22:59 06:59 14:59 Intake Total 143.25 139.704 5 Output Total 2120 550 30 Balance -1976.75 -410.296 -25 Intake: IV 35 40 5 0.9 @ 5 mls/hr 35 40 5 Intake, IV Titration 108.25 99.704 Amount Diltiazem 125 mg In 108.25 46.25 Dextrose 5% in Water 100 ml @ 5 MG/HR 5 mls/hr IV .Q24H [facility] Rx#:[id number] Heparin Sod,Pork in 0.45% 53.454 NaCl 25,000 unit In 0.45 % NaCl 1 250ml.bag @ 12 UNITS/KG/HR 6.532 mls/hr IV .Q24H [facility] Rx#: [id number] Output: Urine 2120 550 30 Other: Voiding Method Indwelling Catheter Indwelling Catheter Weight 54.431 kg 61.9 kg 04/23/25 06:25 04/23/25 06:30
[2025-04-23] MEDS ORDERED: MIDAZOLAM 2 MG/2 ML VIAL IV PRN (07:54)
[2025-04-23] MEDS ORDERED: BENZOCAINE SPRAY 1 EACH MM PRN (07:54)
[2025-04-23] MEDS ORDERED: fentaNYL (PF) 50 MCG/ML 2 ML AMP IVP PRN (07:54)
[2025-04-23] MEDS: POTASSIUM CHLORIDE ER 20 MEQ TAB.ER PO SCH (08:03)
[2025-04-23] MEDS: DEXTROSE 5% IN WATER 100 ML with AMIODARONE 150 MG IV ONE (08:07)
[2025-04-23] MEDS: DEXTROSE 5% IN WATER 250 ML with AMIODARONE 300 MG IV ONE (08:08)
[2025-04-23] MEDS ORDERED: ENOXAPARIN 40 MG/0.4 ML SYRINGE SQ SCH (09:00)
[2025-04-23] MEDS: POTASSIUM CHLORIDE 10 MEQ in WATER FOR INJECTION 1 100ML.BAG IVPB SCH (09:17)
[2025-04-23] MEDS: FUROSEMIDE 10 MG/ML 4 ML VIAL IV SCH (10:14)
--- NOTE | 2025-04-23 10:50 | XR ---
EXAMINATION TYPE: XR chest 1V portable DATE OF EXAM: 04/23/2025 10:39 AM COMPARISON: 04/22/2025 CLINICAL INDICATION: Female, 74 years old with history of CHF, TECHNIQUE: XR chest 1V portable view(s) obtained. FINDINGS: The heart size is enlarged. The pulmonary vasculature is prominent. Small right pleural effusion is present. IMPRESSION: 1. Clinical correlation for congestive heart failure, worsening from comparison. [facility], , 04/23/2025 10:48 AM
--- NOTE | 2025-04-23 10:57 | CA ---
Transthoracic Echo Report Name: Latesha Frazier Age: 74 Gender: F : 1950 Exam Date: 04/22/2025 16:07 Exam Location: [place] [facility] Ht (in): 60 Wt (lb): 120 Ordering Physician: Juan Escobedo MD Attending/Referring Phys: [employer] Mame Lott PIOTR Procedure CPT: Indications: AFib RVR Trop Cardiac Hx: poor due to Tachycardia Technical Quality: Poor Contrast 1: Total Dose (mL): Contrast 2: Total Dose (mL): MEASUREMENTS (Male / Female) Normal Values 2D ECHO LV Diastolic Diameter PLAX 2.9 cm 4.2 - 5.9 / 3.9 - 5.3 cm LV Systolic Diameter PLAX 2.4 cm IVS Diastolic Thickness 1.1 cm 0.6 - 1.0 / 0.6 - 0.9 cm LVPW Diastolic Thickness 1.4 cm 0.6 - 1.0 / 0.6 - 0.9 cm LV Relative Wall Thickness 0.9 RV Internal Dim ED PLAX 2.9 cm LVOT Diameter 1.7 cm LA Systolic Diameter LX 3.0 cm 3.0 - 4.0 / 2.7 - 3.8 cm LV Diastolic Volume MOD BP 50.8 cm??? 67 - 155 / 56 - 104 cm??? LV Systolic Volume MOD BP 32.2 cm??? 22 - 58 / 19 - 49 cm??? LV Ejection Fraction MOD BP 36.7 % >= 55 % LV Cardiac Index MOD BP 1650.6 cm???/min???m??? LV Diastolic Volume MOD 4C 58.3 cm??? LV Systolic Volume MOD 4C 32.2 cm??? LV Ejection Fraction MOD 4C 44.8 % LV Cardiac Index MOD 4C 2308.2 cm???/min???m??? LV Diastolic Length 4C 6.4 cm LV Systolic Length 4C 6.3 cm LV Diastolic Volume MOD 2C 51.7 cm??? LV Systolic Volume MOD 2C 26.8 cm??? LV Ejection Fraction MOD 2C 48.3 % LV Cardiac Index MOD 2C 2209.3 cm???/min???m??? LV Diastolic Length 2C 6.6 cm LV Systolic Length 2C 6.0 cm Ascending Aorta Diameter 2.9 cm M-MODE Aortic Root Diameter MM 2.3 cm AV Cusp Separation MM 1.5 cm DOPPLER AV Peak Velocity 112.9 cm/s AV Peak Gradient 5.1 mmHg LVOT Peak Velocity 81.9 cm/s LVOT Peak Gradient 2.7 mmHg AV Area Cont Eq pk 1.6 cm??? MV Peak Velocity 205.5 cm/s MV Peak Gradient 16.9 mmHg MV Mean Velocity 76.7 cm/s MV Mean Gradient 3.8 mmHg MV Velocity Time Integral 41.8 cm MV Area PHT 3.9 cm??? MR Peak Velocity 532.4 cm/s MR Peak Gradient 113.4 mmHg Mitral E Point Velocity 175.0 cm/s Mitral A Point Velocity 15.4 cm/s Mitral E to A Ratio 11.4 MV Deceleration Time 194.0 ms TR Peak Velocity 409.6 cm/s TR Peak Gradient 67.1 mmHg Right Ventricular Systolic Press 84.8 mmHg FINDINGS Left Ventricle Left ventricular ejection fraction is estimated at 40-45 %. Mildly increased septal wall thickness. Moderately increased posterior wall thickness. Mildly decreased left ventricular ejection fraction. No obvious regional wall motion abnormalities. Right Ventricle Normal right ventricular size and function. Severe pulmonary hypertension. Right ventricular systolic pressure estimated at 84 mm hg. Right Atrium Normal right atrial size. No right atrial thrombus or mass seen. Left Atrium Left atrial dilatation. No left atrial thrombus or mass present. Mitral Valve Moderate thickening/calcification of the mitral valve leaflets,moderate mitral annular calcification. Moderate mitral stenosis. Severe mitral regurgitation. Aortic Valve Thickened aortic valve without stenosis. No aortic regurgitation. Tricuspid Valve Structurally normal tricuspid valve. Mild tricuspid regurgitation. Pulmonic Valve Pulmonic valve not well visualized. Trace pulmonic regurgitation. Pericardium mild epicardial fat Aorta Normal size aortic root and proximal ascending aorta. CONCLUSIONS LVEF 40 to 45% No obvious regional wall motion abnormality Mild concentric LVH Normal RV size and systolic function with severe pulmonary hypertension. RVSP estimated at more than 75 mmHg Calcified mitral valve with severe mitral regurgitation Previewed by: Dr Gordon Flores (Electronically Signed) Final Date: 23 April 2025 10:56
[2025-04-23 10:58] LABS: Hepatitis A Antibody IgM Nonreactive (Nonreactive); Hepatitis B Surface Antigen Nonreactive (Nonreactive); Hepatitis C IgG Antibody Nonreactive (Nonreactive)
--- NOTE | 2025-04-23 12:03 | P.PN ---
Subjective Progress Note Date: 04/23/25 74 year old F with no significant PMH (has not seen a physician in 20+ years) presents to the ED after being sent from urgent care. She reports dry cough, shortness of breath and wheezing that has been ongoing for the past week. Symptoms initially attributed to change in weather but symptoms did not resolve. Reports PPD smoking for 20 years but quit 26 years ago. Drinks 1 glass of wine 4-5 times a week. She denies any alcohol withdrawal symptoms. Drinks 2 cups of coffee daily. Denies chest pain. No nausea or vomiting. No fever or chills. No abdominal pain, changes in urination or bowel habits. In the ED she underwent extensive evaluation. BP 229/193, HR 56 (as high as 183), T 97.9F, RR 20, 96% on RA. CBC, Coag panel, CMP significant for PT 19.1, INR 1.9, APTT 20.8, Na 130, Cl 97, bicarb 7, BUN 25, glu 140, T. Bili 2.8, AST 126, ALT 71. Lactic acid 10.4. BNP 6500. D-Dimer 5.92. CXR pulmonary vascular congestion. CTA chest neg PE, moderate right and left pleural effusion. CT AP shows abdominal aortic aneurysm 3.8 cm, mild fatty liver infiltration, minimal fluid adjacent to the GB. Patient was started on a Cardizem drip and admitted to ICU for further workup and management. 04/23 Patient was seen and examined. Feeling better. Maintained on Cardizem at 5 mg/hr. Cardiology has added Amiodarone drip with plans for cardioversion later today. Maintain on heparin drip at 12 units/hr. CBC, Coag panel, CMP significant for PT 16, INR 1.5, APTT 45.6, Na 134, K 3.3, BUN 24, T. Bili 2.1, AST 148, ALT 91, alb 3.3. Trop 0.078, 0.071, 0.086. Conjugated 0, Unconjugated 1.1, Delta 0.9. Hep panel negative. GB US shows polpy versus adherent gallstone, minimal fluid adjacent to GB, right pleural effusion. Echo EF 40-45% moderate wall thickeness, no wall motion abnormalities, severe pulm HTN, severe MR, mod MS, mild TR/WY. Venous duplex neg for DVT. CXR shows pulmonary vascular congestion. Lactic acid 1.9. TSH 1.93. General: no distress, appears at stated age Derm: warm, dry Head: atraumatic, normocephalic, symmetric Eyes: EOMI Mouth: no lip lesion, mucus membranes moist Cardiovascular: S1 S2 irreg tachy. No murmur. Lungs: Decreased BS bilaterally, no accessory muscle use Abd: Soft. Non tender to palpation Ext: no gross muscle atrophy, 2+ BL LE edema, no contractures Neuro: No FND Psych: AO x 3 Based on my assessment of this patient, this patient meets a high complexity level of care. Atrial fibrillation with RVR: Cardizem + Amiodarone drip as above. Continue heparin drip at 12 units/kg/hr. TSH as above. Cardiology on board, plans for cardioversion today. HFrEF exacerbation: Status post Lasix 60 mg IV 04/22. Started on Lasix 40 mg IV QD. Strict intake and outtake. Daily weights. Monitor renal function and e-lytes while on Lasix IV. Echo as above. Would benefit from BB, ACEi, K sparing diuretic when appropriate. Cardiology on board. Troponin elevation, likely type II NSTEMI: Troponins flat. Management as above. Hypokalemia: Due to Lasix IV. Replace via protocol and repeat BMP in the AM. Hyperbiliruibinemia with Transaminitis: Benign abdominal exam. CT AP shows abdominal aortic aneurysm 3.8 cm, mild fatty liver infiltration, minimal fluid adjacent to the GB. GB US shows polpy versus adherent gallstone, minimal fluid adjacent to GB, right pleural effusion. Conjugated 0, Unconjugated 1.1, Delta 0.9. Hep panel negative. GGT, Lipid panel pending. Hyponatremia: Hypervolemic. Improving with Lasix. Monitor. Elevated D-Dimer: CTA chest neg. Venous duplex negative for DVT. Resolved: Hypertensive emergency, Lactic acidosis. CODE STATUS: FULL CODE. DVT Prophylaxis: Hep drip GI Prophylaxis: Designated medical POA if patient is not able to make medical decisions for the mselves: I have reviewed the following production support consultant notes: Cardio note. I have reviewed the results of the following tests: As above. I have ordered the following tests: As above. I have discussed the care of this patient with the following independent historian: MARIA ESTHER. I have independently interpreted the following test below: CXR I have discussed the management of this patient with the following physician: Objective - Vital Signs Vital signs: Vital Signs Temp 97.8 F 04/23/25 08:00 Pulse 96 04/23/25 11:00 Resp 26 H 04/23/25 11:00 BP 114/85 04/23/25 11:00 Pulse Ox 96 04/23/25 11:00 FiO2 Intake & Output 04/22/25 04/23/25 04/23/25 18:59 06:59 18:59 Intake Total 49.5 233.454 651.417 Output Total 900 1770 440 Balance -850.5 -1536.546 211.417 Weight 54.431 kg 61.9 kg Intake: IV 15 60 25 0.9 @ 5 mls/hr 15 60 25 Intake, IV Titration 34.5 173.454 626.417 Amount Dextrose 5% in Water 100 100 ml @ 618 mls/hr IV .Q10M ONE with Amiodarone 150 mg Rx#:[id number] Dextrose 5% in Water 250 250 ml @ 128 mls/hr IV .Q2H ONE with Amiodarone 300 mg Rx#:[id number] Diltiazem 125 mg In 34.5 120.00 76.417 Dextrose 5% in Water 100 ml @ 5 MG/HR 5 mls/hr IV .Q24H [facility] Rx#:[id number] Heparin Sod,Pork in 0.45% 53.454 NaCl 25,000 unit In 0.45 % NaCl 1 250ml.bag @ 12 UNITS/KG/HR 6.532 mls/hr IV .Q24H [facility] Rx#: [id number] Potassium Chloride 10 meq 200 In Water For Injection 1 100ml.bag @ 100 mls/hr IVPB Q1H [facility] Rx#: [id number] Output: Urine 900 1770 440 Other: Voiding Method Indwelling Catheter Indwelling Catheter Indwelling Catheter - Labs CBC & Chem 7: 04/23/25 06:25 04/23/25 06:30 Labs: Abnormal Lab Results - Last 24 Hours (Table) 04/22/25 04/22/25 04/22/25 Range/Units 10:31 11:51 15:09 MPV 12.3 H (9.5-12.2) fL Lymphocytes # 0.60 L (0.90-5.00) 10*3/uL Eosinophils # 0.00 L (0.04-0.35) 10*3/uL PT 19.1 H (10.0-12.5) sec INR 1.9 H (<1.2) APTT 20.8 L (22.0-30.0) sec D-Dimer 5.92 H (<0.60) mg/L FEU Sodium (137-145) mmol/L Potassium (3.5-5.1) mmol/L BUN (7-17) mg/dL POC Glucose (mg/dL) (70-110) mg/dL Plasma Lactic Acid Chung 2.3 H* (0.7-2.0) mmol/L Total Bilirubin (0.2-1.3) mg/dL Delta Bilirubin (0.0-0.2) mg/dL AST (14-36) U/L ALT (4-34) U/L Troponin I (0.000-0.034) ng/mL Total Protein (6.3-8.2) g/dL Albumin (3.5-5.0) g/dL 04/22/25 04/22/25 04/22/25 Range/Units 15:09 15:57 18:14 MPV (9.5-12.2) fL Lymphocytes # (0.90-5.00) 10*3/uL Eosinophils # (0.04-0.35) 10*3/uL PT (10.0-12.5) sec INR (<1.2) APTT (22.0-30.0) sec D-Dimer (<0.60) mg/L FEU Sodium (137-145) mmol/L Potassium (3.5-5.1) mmol/L BUN (7-17) mg/dL POC Glucose (mg/dL) 131 H (70-110) mg/dL Plasma Lactic Acid Chung (0.7-2.0) mmol/L Total Bilirubin (0.2-1.3) mg/dL Delta Bilirubin (0.0-0.2) mg/dL AST (14-36) U/L ALT (4-34) U/L Troponin I 0.071 H* 0.086 H* (0.000-0.034) ng/mL Total Protein (6.3-8.2) g/dL Albumin (3.5-5.0) g/dL 04/22/25 04/23/25 04/23/25 Range/Units 23:30 06:25 06:25 MPV (9.5-12.2) fL Lymphocytes # (0.90-5.00) 10*3/uL Eosinophils # (0.04-0.35) 10*3/uL PT 16.0 H (10.0-12.5) sec INR 1.5 H (<1.2) APTT 35.1 H (22.0-30.0) sec D-Dimer (<0.60) mg/L FEU Sodium (137-145) mmol/L Potassium (3.5-5.1) mmol/L BUN (7-17) mg/dL POC Glucose (mg/dL) (70-110) mg/dL Plasma Lactic Acid Chung (0.7-2.0) mmol/L Total Bilirubin 2.0 H (0.2-1.3) mg/dL Delta Bilirubin 0.9 H (0.0-0.2) mg/dL AST (14-36) U/L ALT (4-34) U/L Troponin I (0.000-0.034) ng/mL Total Protein (6.3-8.2) g/dL Albumin (3.5-5.0) g/dL 04/23/25 04/23/25 Range/Units 06:25 06:30 MPV (9.5-12.2) fL Lymphocytes # (0.90-5.00) 10*3/uL Eosinophils # (0.04-0.35) 10*3/uL PT (10.0-12.5) sec INR (<1.2) APTT 45.6 H (22.0-30.0) sec D-Dimer (<0.60) mg/L FEU Sodium 134 L (137-145) mmol/L Potassium 3.3 L (3.5-5.1) mmol/L BUN 24 H (7-17) mg/dL POC Glucose (mg/dL) (70-110) mg/dL Plasma Lactic Acid Chung (0.7-2.0) mmol/L Total Bilirubin 2.1 H (0.2-1.3) mg/dL Delta Bilirubin (0.0-0.2) mg/dL AST 148 H (14-36) U/L ALT 91 H (4-34) U/L Troponin I (0.000-0.034) ng/mL Total Protein 6.0 L (6.3-8.2) g/dL Albumin 3.3 L (3.5-5.0) g/dL
[2025-04-23] MEDS ORDERED: HEPARIN SODIUM,PORCINE/D5W 25,000 UNIT in EMPTY BAG 1 BAG IV SCH ×2 (12:30→12:45)
[2025-04-23] MEDS ORDERED: PROPOFOL 10 MG/ML 20 ML VIAL IV ONE (12:55)
[2025-04-23] MEDS ORDERED: LIDOCAINE 1% INJ 10MG/ML (20 ML MDV) ONE (12:55)
--- NOTE | 2025-04-23 13:10 | P.CNPUL ---
History of Present Illness Consult date: 04/23/25 Requesting physician: Thor Epstein Reason for consult: other (ICU management) Chief complaint: Shortness of breath History of present illness: This is a 74-year-old female, no significant past medical history, presented to the urgent care yesterday with shortness of breath, patient had shortness of breath for about a week prior to her presentation. She was also complaining of increased swelling in her lower extremities. Prior to this patient was feeling great. Over the last week her shortness of breath has become more pronounced, and she went to urgent care where and she was found to be in atrial fibrillation with RVR. Patient was sent to ER at [facility], again she was noted to be in atrial fibrillation with RVR, rate is about 170 with right bundle branch block morphology. And she had nonspecific ST depressions. She was also noted to have lactic acidosis, bicarb was as low as 7 lactic acid was 10 troponin was 0.07. Patient was placed on Cardizem drip and her rate slowed down. She was also noted to have elevated liver enzymes and elevated total bili wilson of 2.1. Patient has not been seen by any physician for many years. She does not smoke, she does drink alcohol occasionally. CT angiogram of the chest was performed because of elevated D-dimer at 5.9, and CT of the abdomen pelvis also showed some aortic aneurysm measuring 3.8 cm. And fatty liver infiltration. On the CT of the chest there was no evidence of PE but there was evidence of small bilateral pleural effusions. Patient was seen by cardiology, and she was changed from Cardizem to amiodarone. The plan is to have the patient undergo MARTHA cardioversion sometime later today. Since yesterday, the patient has made significant clinical improvement, she feels much better, she is still in atrial fibrillation with rate about 104. Denies any chest pain denies any shortness of breath no cough no wheezing no fever no chills no hemoptysis. WBC count is 8.7 hemoglobin 13.7 PTT is 45.6 electrolytes are normal except for low potassium of 3.3. Renal profile is normal troponin 0.086. Bicarb corrected nicely from 7 on initial admission up to 26 patient did not require any bicarb d rip. Review of Systems Constitutional: As noted in HPI Eyes: Patient reports no double vision, no visual changes. ENT: Patient reports no ear pain, No rhinorrhea, No post nasal drip, No sore throat. Cardiovascular: As noted in HPI Respiratory: As noted in HPI Gastrointestinal: Patient reports no nausea, no vomiting, no constipation, no diarrhea. Genitourinary: Patient reports no dysuria, no urinary frequency, no hematuria. Musculoskeletal: Patient reports no unusual joint pain, no joint swelling or weakness. Patient reports no muscular pain. Psychiatric: Patient reports no changes in mood, no sleeping problems. Patient reports no changes in memory. Endocrine: Patient reports no thirst, no polyuria, no cold intolerance, no heat intolerance. Neurological: Patient reports no unusual paresthesias, no seizures, no paresis, no paralysis, no facial droop, no headache. Heme/Lymphatic: Patient reports no easy bruising, no bleeding tendency, no lymphadenopathy. Skin: Patient reports no rashes or unusual lesions. Past Medical History Past Medical History: No Reported History History of Any Multi-Drug Resistant Organisms: None Reported Past Surgical History: No Surgical Hx Reported Past Anesthesia/Blood Transfusion Reactions: No Reported Reaction Past Psychological History: No Psychological Hx Reported Smoking Status: Former smoker Past Alcohol Use History: Rare Past Drug Use History: None Reported - Past Family History Brother(s) Additional Family Medical History / Comment(s): brain aneurysm Father Family Medical History: Myocardial Infarction ([place]) Medications and Allergies Home Medications Medication Instructions Recorded Confirmed Type No Known Home Medications 04/22/25 04/22/25 History Allergies Allergy/AdvReac Type Severity Reaction Status Date / Time No Known Allergies Allergy Verified 04/22/25 11:16 Physical Exam Vitals: Vital Signs Temp Pulse Resp BP Pulse Ox 04/23/25 11:00 96 26 H 114/85 96 04/23/25 10:00 106 H 21 135/125 96 04/23/25 09:00 75 22 158/99 96 04/23/25 08:00 97.8 F 101 H 20 146/82 95 04/23/25 07:00 74 30 H 141/127 92 L 04/23/25 06:00 76 15 141/77 94 L 04/23/25 05:00 86 18 139/80 92 L 04/23/25 04:30 73 15 134/70 94 L 04/23/25 04:00 88 13 136/84 94 L 04/23/25 03:30 80 19 146/98 93 L 04/23/25 03:00 85 18 125/85 94 L 04/23/25 02:30 81 16 129/70 95 04/23/25 02:00 86 16 124/65 95 04/23/25 01:30 79 17 117/80 95 04/23/25 01:00 68 17 139/75 94 L 04/23/25 00:30 93 20 135/88 96 04/23/25 00:00 97.9 F 86 18 140/82 95 04/22/25 23:30 89 16 129/71 96 04/22/25 23:00 84 28 H 108/77 95 04/22/25 22:30 83 18 147/79 94 L 04/22/25 22:03 82 19 150/91 95 04/22/25 22:00 90 18 129/72 95 04/22/25 21:30 77 14 114/68 97 04/22/25 21:00 80 18 117/71 95 04/22/25 20:30 93 19 142/81 96 04/22/25 20:00 98.7 F 90 22 136/83 97 04/22/25 19:30 86 21 144/77 94 L 04/22/25 19:00 105 H 27 H 138/89 94 L 04/22/25 18:45 104 H 20 148/91 95 04/22/25 18:30 98 37 H 152/79 95 04/22/25 18:15 98 26 H 156/94 96 04/22/25 18:00 96 19 156/94 95 04/22/25 17:45 117 H 37 H 95 04/22/25 17:30 133 H 24 96 04/22/25 17:15 39 H 96 04/22/25 17:10 76 29 H 130/111 96 04/22/25 16:00 97.8 F 160 H 25 H 154/126 97 04/22/25 15:43 112 H 20 154/126 95 04/22/25 14:40 106 H 18 149/114 96 04/22/25 13:40 136 H 19 104/89 98 Intake and Output 04/22/25 04/23/25 04/23/25 22:59 06:59 14:59 Intake Total 143.25 139.704 651.417 Output Total 2120 550 440 Balance -1976.75 -410.296 211.417 Intake: IV 35 40 25 0.9 @ 5 mls/hr 35 40 25 Intake, IV Titration 108.25 99.704 626.417 Amount Dextrose 5% in Water 100 100 ml @ 618 mls/hr IV .Q10M ONE with Amiodarone 150 mg Rx#:[id number] Dextrose 5% in Water 250 250 ml @ 128 mls/hr IV .Q2H ONE with Amiodarone 300 mg Rx#:[id number] Diltiazem 125 mg In 108.25 46.25 76.417 Dextrose 5% in Water 100 ml @ 5 MG/HR 5 mls/hr IV .Q24H [facility] Rx#:[id number] Heparin Sod,Pork in 0.45% 53.454 NaCl 25,000 unit In 0.45 % NaCl 1 250ml.bag @ 12 UNITS/KG/HR 6.532 mls/hr IV .Q24H [facility] Rx#: [id number] Potassium Chloride 10 meq 200 In Water For Injection 1 100ml.bag @ 100 mls/hr IVPB Q1H [facility] Rx#: [id number] Output: Urine 0 550 440 Other: Voiding Method Indwelling Catheter Indwelling Catheter Indwelling Catheter Weight 54.431 kg 61.9 kg Physical exam revealed a 74-year-old, in no distress, on room air Head: Atraumatic, normocephalic EENT: PERRLA, EOMI, nonicteric, no neck masses, no JVD, no stridor, moist mucous membranes Chest: Symmetrical chest expansion Lungs: Slightly diminished breath sounds at the bases no crackles rhonchi or wheezes Cardiac: Irregular irregular rhythm normal S1-S2, no S3 gallop, no murmur, no bruit Abdomen: Soft nontender no megaly no rebound no guarding good bowel sounds Extremities: No clubbing edema or cyanosis, good pulses bilaterally Musculoskeletal: No deformities and no limitation range of motion Neurologic: Alert oriented x 3 no gross focal neurologic deficit Psychiatric: Normal mood and affect and no mental status examination Skin: No rashes. Results - Laboratory Findings CBC and BMP: 04/23/25 06:25 04/23/25 06:30 PT/INR, D-dimer PT 16.0 sec (10.0-12.5) H 04/23/25 06:25 INR 1.5 (<1.2) H 04/23/25 06:25 D-Dimer 5.92 mg/L FEU (<0.60) H 04/22/25 10:31 Abnormal lab findings: Abnormal Labs 04/22/25 04/22/25 04/22/25 10:31 10:31 10:31 MPV Lymphocytes # Eosinophils # PT 19.1 H INR 1.9 H APTT 20.8 L D-Dimer 5.92 H Sodium 130 L Potassium Chloride 97 L Carbon Dioxide 7 L* BUN 25 H Glucose 140 H POC Glucose (mg/dL) Plasma Lactic Acid Chung 10.4 H* Total Bilirubin 2.8 H Delta Bilirubin AST 126 H ALT 71 H Troponin I Total Protein Albumin 04/22/25 04/22/25 04/22/25 10:31 11:51 15:09 MPV 12.3 H Lymphocytes # 0.60 L Eosinophils # 0.00 L PT INR APTT D-Dimer Sodium Potassium Chloride Carbon Dioxide BUN Glucose POC Glucose (mg/dL) Plasma Lactic Acid Chung 2.3 H* Total Bilirubin Delta Bilirubin AST ALT Troponin I 0.078 H* Total Protein Albumin 04/22/25 04/22/25 04/22/25 15:09 15:57 18:14 MPV Lymphocytes # Eosinophils # PT INR APTT D-Dimer Sodium Potassium Chloride Carbon Dioxide BUN Glucose POC Glucose (mg/dL) 131 H Plasma Lactic Acid Chung Total Bilirubin Delta Bilirubin AST ALT Troponin I 0.071 H* 0.086 H* Total Protein Albumin 04/22/25 04/23/25 04/23/25 23:30 06:25 06:25 MPV Lymphocytes # Eosinophils # PT 16.0 H INR 1.5 H APTT 35.1 H D-Dimer Sodium Potassium Chloride Carbon Dioxide BUN Glucose POC Glucose (mg/dL) Plasma Lactic Acid Chung Total Bilirubin 2.0 H Delta Bilirubin 0.9 H AST ALT Troponin I Total Protein Albumin 04/23/25 04/23/25 06:25 06:30 MPV Lymphocytes # Eosinophils # PT INR APTT 45.6 H D-Dimer Sodium 134 L Potassium 3.3 L Chloride Carbon Dioxide BUN 24 H Glucose POC Glucose (mg/dL) Plasma Lactic Acid Chung Total Bilirubin 2.1 H Delta Bilirubin AST 148 H ALT 91 H Troponin I Total Protein 6.0 L Albumin 3.3 L - Diagnostic Findings CT scan - chest: image reviewed (As noted in HPI) Assessment and Plan Assessment: Impression: New onset atrial fibrillation with RVR Acute congestive heart failure with unknown ejection fraction, echocardiogram is pending but this is felt to be mostly in the setting of atrial fibrillation with RVR. Severe lactic acidosis secondary to poor perfusion related to atrial fibrillation with RVR. Non-ST elevation myocardial infarction Abdominal aortic aneurysm Abnormal liver enzymes, most likely secondary to hypoperfusion related to atrial fibrillation with RVR. Recommendation: Continue present treatment plan as outlined by cardiology patient seems to be significantly improved compared to yesterday. Patient is scheduled to undergo MARTHA cardioversion Patient is now on heparin, off amiodarone, and she is on IV Cardizem at 5 mg/h Will continue the same supportive care measures, Will continue to monitor the patient in the ICU Will continue to follow. Time with Patient: Greater than 30
[2025-04-23] MEDS: AMIODARONE 360 MG in DEXTROSE 5% IN WATER 200 ML IV ONE (13:42)
[2025-04-23 15:50] LABS: Cholesterol 139.00 mg/dL (0.00-200.00); GGT 124 U/L (0-38); HDL Cholesterol 32.60 mg/dL (40.00-60.00); LDL Cholesterol,Calculated 94.7 mg/dL (0.0-131.0); Triglycerides 58.40 mg/dL (0.00-149.00); VLDL Calculation 11.68 mg/dL (5.00-40.00)
[2025-04-23] MEDS: AMIODARONE 450 MG in DEXTROSE 5% IN WATER 250 ML IV SCH (19:47)
[2025-04-23] MEDS: APIXABAN 5 MG TAB PO SCH (20:35)
[2025-04-23] MEDS: LOSARTAN 50 MG TAB PO SCH (20:35)
[2025-04-24 06:18] LABS: African American GFR (CKD) 69 (>60 ml/min/1.73 sqM); Anion Gap 9 mmol/L; Blood Urea Nitrogen 25 mg/dL (7-17); Calcium 9.1 mg/dL (8.4-10.2); Carbon Dioxide 27 mmol/L (22-30); Chloride 96 mmol/L (98-107); Glucose 102 mg/dL (74-99); Non-African American GFR(CKD) 60 (>60 ml/min/1.73 sqM); Potassium 3.7 mmol/L (3.5-5.1); Sodium 132 mmol/L (137-145)
[2025-04-24 06:33] LABS: Basophils # (A) 0.03 10*3/uL (0.00-0.10); Basophils % (A) 0.3 %; Eosinophils # (A) 0.08 10*3/uL (0.04-0.35); Eosinophils % (A) 0.9 %; HCT 42.5 % (37.2-46.3); HGB 13.9 g/dL (12.0-15.0); Lymphocytes # (A) 0.69 10*3/uL (0.90-5.00); Lymphocytes % (A) 7.4 %; MCH 30.8 pg (27.0-32.0); MCHC 32.7 g/dL (32.0-37.0); MCV 94.0 fL (80.0-97.0); Monocytes # (A) 1.34 10*3/uL (0.20-1.00); Monocytes % (A) 14.4 %; Neutrophils # (A) 7.14 10*3/uL (1.80-7.70); Neutrophils % (A) 76.7 %; Platelet Count 168 10*3/uL (140-440); RBC 4.52 10*6/uL (4.10-5.20); RDW 14.6 % (11.5-14.5); WBC 9.31 10*3/uL (4.50-10.00)
[2025-04-24] MEDS: POTASSIUM BICARBONATE/CIT AC 20 MEQ TABLET.EFF NG-TUBE SCH (06:42)
--- NOTE | 2025-04-24 07:52 | XR ---
EXAMINATION TYPE: XR chest 1V portable DATE OF EXAM: 04/24/2025 5:56 AM COMPARISON: 04/23/2025 CLINICAL INDICATION: Female, 74 years old with history of CHF, TECHNIQUE: XR chest 1V portable views of the chest are obtained. FINDINGS: Demonstrated are scattered senescent parenchymal change. There is pulmonary venous congestion with small effusions and cardiomegaly. Stable reticular-nodular infiltrate. Correlate for underlying congestive failure. Hilar and mediastinal structures are within normal limits. Degenerative changes are seen of the dorsal spine. IMPRESSION: 1. Slightly progressive features of congestive failure. Correlate clinically and progress studies rec ommended. [facility], , 04/24/2025 7:50 AM
[2025-04-24] MEDS: METOPROLOL SUCCINATE (ER) 25 MG TAB.ER.24H PO SCH (08:04)
--- NOTE | 2025-04-24 10:53 | P.PN ---
Subjective Progress Note Date: 04/24/25 74 year old F with no significant PMH (has not seen a physician in 20+ years) presents to the ED after being sent from urgent care. She reports dry cough, shortness of breath and wheezing that has been ongoing for the past week. Symptoms initially attributed to change in weather but symptoms did not resolve. Reports PPD smoking for 20 years but quit 26 years ago. Drinks 1 glass of wine 4-5 times a week. She denies any alcohol withdrawal symptoms. Drinks 2 cups of coffee daily. Denies chest pain. No nausea or vomiting. No fever or chills. No abdominal pain, changes in urination or bowel habits. In the ED she underwent extensive evaluation. BP 229/193, HR 56 (as high as 183), T 97.9F, RR 20, 96% on RA. CBC, Coag panel, CMP significant for PT 19.1, INR 1.9, APTT 20.8, Na 130, Cl 97, bicarb 7, BUN 25, glu 140, T. Bili 2.8, AST 126, ALT 71. Lactic acid 10.4. BNP 6500. D-Dimer 5.92. CXR pulmonary vascular congestion. CTA chest neg PE, moderate right and left pleural effusion. CT AP shows abdominal aortic aneurysm 3.8 cm, mild fatty liver infiltration, minimal fluid adjacent to the GB. Patient was started on a Cardizem drip and admitted to ICU for further workup and management. 04/23 Patient was seen and examined. Feeling better. Maintained on Cardizem at 5 mg/hr. Cardiology has added Amiodarone drip with plans for cardioversion later today. Maintain on heparin drip at 12 units/hr. CBC, Coag panel, CMP significant for PT 16, INR 1.5, APTT 45.6, Na 134, K 3.3, BUN 24, T. Bili 2.1, AST 148, ALT 91, alb 3.3. Trop 0.078, 0.071, 0.086. Conjugated 0, Unconjugated 1.1, Delta 0.9. Hep panel negative. GB US shows polpy versus adherent gallstone, minimal fluid adjacent to GB, right pleural effusion. Echo EF 40-45% moderate wall thickeness, no wall motion abnormalities, severe pulm HTN, severe MR, mod MS, mild TR/HI. Venous duplex neg for DVT. CXR shows pulmonary vascular congestion. Lactic acid 1.9. TSH 1.93. 04/24 Patient was seen and examined. Underwent MARTHA and Cardioversion yesterday. Now maintaining sinus. Heparin drip switched to Eliquis, Amidarone + Cardizem discontinued. Maintained on Lasix 40 mg IV QD, negative 2.387L fluid balance over the past 24H. CBC, Coag panel, BMP significant for Na 132, Cl 96, BUN 25. GGT 124. CXR shows pulmonary vascular congestion. General: no distress, appears at stated age Derm: warm, dry Head: atraumatic, normocephalic, symmetric Eyes: EOMI Mouth: no lip lesion, mucus membranes moist Cardiovascular: S1 S2 reg. No murmur. Lungs: Decreased BS bilaterally, no accessory muscle use Abd: Soft. Non tender to palpation Ext: no gross muscle atrophy, trace BL LE edema, no contractures Neuro: No FND Psych: AO x 3 +[place] Based on my assessment of this patient, this patient meets a high complexity level of care. Atrial fibrillation with RVR: Status post Cardioversion 04/24. Metoprolol 25 mg PO QD. Eliquis 5 mg PO BID. TSH as above. Cardiology on board. HFrEF exacerbation: Status post Lasix 60 mg IV 04/22. Started on Lasix 40 mg IV QD 04/23, will increase to BID dosing today. Strict intake and outtake. Daily weights. Monitor renal function and e-lytes while on Lasix IV. Echo as above. Metoprolol as above and Losartan as below. Cardiology on board. Troponin elevation, likely type II NSTEMI: Troponins flat. Management as above. Hypertension: Metoprolol as above. Losartan 50 mg PO QD. Monitor vitals, adjust medications if necessary. Hyperbiliruibinemia with Transaminitis: Benign abdominal exam. CT AP shows abdominal aortic aneurysm 3.8 cm, mild fatty liver infiltration, minimal fluid adjacent to the GB. GB US shows polpy versus adherent gallstone, minimal fluid adjacent to GB, right pleural effusion. Conjugated 0, Unconjugated 1.1, Delta 0.9, GGT 124. Hep panel negative. Outpatient GI evaluation recommended. Hyponatremia: Hypervolemic. Improving with Lasix. Monitor. Elevated D-Dimer: CTA chest neg. Venous duplex negative for DVT. Resolved: Hypertensive emergency, Lactic acidosis, HypoK Wean O2. Continue IV lasix. Monitor BP. Anticipate DC in 1-2 days. CODE STATUS: FULL CODE. DVT Prophylaxis: Eliquis GI Prophylaxis: Designated medical POA if patient is not able to make medical decisions for themselves: I have reviewed the following senior environmental consultant notes: Cardio note. I have reviewed the results of the following tests: CBC, COag panel, BMP. I have ordered the following tests: BMP and Mag in the AM. CXR in the AM. I have discussed the care of this patient with the following independent historian: I have independently interpreted the following test below: CXR I have discussed the management of this patient with the following physician: Objective - Vital Signs Vital signs: Vital Signs Temp 98.1 F 04/24/25 08:00 Pulse 83 04/24/25 08:00 Resp 24 04/24/25 08:00 BP 163/88 04/24/25 08:00 Pulse Ox 96 04/24/25 08:00 FiO2 Intake & Output 04/23/25 04/24/25 04/24/25 18:59 06:59 18:59 Intake Total 786.317 45 204.726 Output Total 1315 455 250 Balance -528.683 -410 -45.274 Weight 61.3 kg Intake: IV 60 45 0.9 @ 5 mls/hr 60 45 Intake, IV Titration 726.317 204.726 Amount Amiodarone 360 mg In 99.9 Dextrose 5% in Water 200 ml @ 1 MG/MIN 33.333 mls/ hr IV .Q6H ONE Rx#: [id number] Amiodarone 450 mg In 204.726 Dextrose 5% in Water 250 ml @ 0.5 MG/MIN 16.667 mls/hr IV .Q15H [facility] Rx#: [id number] Dextrose 5% in Water 100 100 ml @ 618 mls/hr IV .Q10M ONE with Amiodarone 150 mg Rx#:[id number] Dextrose 5% in Water 250 250 ml @ 128 mls/hr IV .Q2H ONE with Amiodarone 300 mg Rx#:[id number] Diltiazem 125 mg In 76.417 Dextrose 5% in Water 100 ml @ 5 MG/HR 5 mls/hr IV .Q24H [facility] Rx#:[id number] Potassium Chloride 10 meq 200 In Water For Injection 1 100ml.bag @ 100 mls/hr IVPB Q1H [facility] Rx#: [id number] Output: Urine 1315 455 250 Other: Voiding Method Indwelling Catheter Indwelling Catheter Indwelling Catheter - Labs CBC & Chem 7: 04/24/25 05:27 04/24/25 05:27 Labs: Abnormal Lab Results - Last 24 Hours (Table) 04/23/25 04/24/25 04/24/25 Range/Units 06:30 05:27 05:27 MPV 12.5 H (9.5-12.2) fL Lymphocytes # 0.69 L (0.90-5.00) 10*3/uL Monocytes # 1.34 H (0.20-1.00) 10*3/uL Sodium 132 L (137-145) mmol/L Chloride 96 L (98-107) mmol/L BUN 25 H (7-17) mg/dL Glucose 102 H (74-99) mg/dL GGT 124 H (0-38) U/L HDL Cholesterol 32.60 L (40.00-60.00) mg/dL
--- NOTE | 2025-04-24 10:59 | P.PN ---
Subjective Progress Note Date: 04/24/25 Principal diagnosis: New onset atrial fibrillation with RVR and acute systolic congestive heart failure This is a 74-year-old female, no significant past medical history, presented to the urgent care yesterday with shortness of breath, patient had shortness of breath for about a week prior to her presentation. She was also complaining of increased swelling in her lower extremities. Prior to this patient was feeling great. Over the last week her shortness of breath has become more pronounced, and she went to urgent care where and she was found to be in atrial fibrillation with RVR. Patient was sent to ER at [facility], again she was noted to be in atrial fibrillation with RVR, rate is about 170 with right bundle branch block morphology. And she had nonspecific ST depressions. She was also noted to have lactic acidosis, bicarb was as low as 7 lactic acid was 10 troponin was 0.07. Patient was placed on Cardizem drip and her rate slowed down. She was also noted to have elevated liver enzymes and elevated total bilirubin of 2.1. Patient has not been seen by any physician for many years. She does not smoke, she does drink alcohol occasionally. CT angiogram of the chest was performed because of elevated D-dimer at 5.9, and CT of the abdomen pelvis also showed some aortic aneurysm measuring 3.8 cm. And fatty liver infiltration. On the CT of the chest there was no evidence of PE but there was evidence of small bilateral pleural effusions. Patient was seen by cardiology, and she was changed from Cardizem to amiodarone. The plan is to have the patient undergo MARTHA cardioversion sometime later today. Since yesterday, the patient has made significant clinical improvement, she feels much better, she is still in atrial fibrillation with rate about 104. Denies any chest pain denies any shortness of breath no cough no wheezing no fever no chills no hemoptysis. WBC count is 8.7 hemoglobin 13.7 PTT is 45.6 electrolytes are normal except for low potassium of 3.3. Renal profile is normal troponin 0.086. Bicarb corrected nicely from 7 on initial admission up to 26 patient did not require any bicarb drip. Patient was seen today on 04/24/2025, remains in the ICU however she has been downgraded to 3 S. She is on amiodarone drip at 0.5 mg/min, patient is on Lasix 40 mg daily, on Eliquis, her ejection fraction was 40 to 45%, CT angiogram showed no evidence of pulmonary embolism. Echocardiogram showed LV dysfunction and pulmonary hypertension. Patient underwent MARTHA cardioversion yesterday, she is now in sinus rhythm. She is on 2 L nasal cannula, chest x-ray continues to show evidence of congestive heart failure. Clinically however the patient is comfortable and she does not seem to be in any distress. WBC count is 9.3 hemoglobin 13.9 electrolytes are normal renal profile is normal Objective - Vital Signs Vital signs: Vital Signs Temp 98.1 F 04/24/25 08:00 Pulse 83 04/24/25 08:00 Resp 24 04/24/25 08:00 BP 163/88 04/24/25 08:00 Pulse Ox 96 04/24/25 08:00 FiO2 Intake & Output 04/23/25 04/24/25 04/24/25 18:59 06:59 18:59 Intake Total 786.317 45 204.726 Output Total 1315 455 250 Balance -528.683 -410 -45.274 Weight 61.3 kg Intake: IV 60 45 0.9 @ 5 mls/hr 60 45 Intake, IV Titration 726.317 204.726 Amount Amiodarone 360 mg In 99.9 Dextrose 5% in Water 200 ml @ 1 MG/MIN 33.333 mls/ hr IV .Q6H ONE Rx#: [id number] Amiodarone 450 mg In 204.726 Dextrose 5% in Water 250 ml @ 0.5 MG/MIN 16.667 mls/hr IV .Q15H [facility] Rx#: [id number] Dextrose 5% in Water 100 100 ml @ 618 mls/hr IV .Q10M ONE with Amiodarone 150 mg Rx#:[id number] Dextrose 5% in Water 250 250 ml @ 128 mls/hr IV .Q2H ONE with Amiodarone 300 mg Rx#:[id number] Diltiazem 125 mg In 76.417 Dextrose 5% in Water 100 ml @ 5 MG/HR 5 mls/hr IV .Q24H [facility] Rx#:[id number] Potassium Chloride 10 meq 200 In Water For Injection 1 100ml.bag @ 100 mls/hr IVPB Q1H [facility] Rx#: [id number] Output: Urine 1315 455 250 Other: Voiding Method Indwelling Catheter Indwelling Catheter Indwelling Catheter - Exam Physical exam revealed a 74-year-old, in no distress, on room air Head: Atraumatic, normocephalic EENT: PERRLA, EOMI, nonicteric, no neck masses, no JVD, no stridor, moist mucous membranes Chest: Symmetrical chest expansion Lungs: Diminished breath sounds at the bases no rhonchi no wheezes Cardiac: Regular rate and rhythm, normal S1-S2, no S3 gallop. Abdomen: Soft nontender no megaly no rebound no guarding good bowel sounds Extremities: No clubbing edema or cyanosis, good pulses bilaterally Musculoskeletal: No deformities and no limitation range of motion Neurologic: Alert oriented x 3 no gross focal neurologic deficit Psychiatric: Normal mood and affect and no mental status examination Skin: No rashes. - Labs CBC & Chem 7: 04/24/25 05:27 04/24/25 05:27 Labs: Abnormal Lab Results - Last 24 Hours (Table) 04/23/25 04/24/25 04/24/25 Range/Units 06:30 05:27 05:27 MPV 12.5 H (9.5-12.2) fL Lymphocytes # 0.69 L (0.90-5.00) 10*3/uL Monocytes # 1.34 H (0.20-1.00) 10*3/uL Sodium 132 L (137-145) mmol/L Chloride 96 L (98-107) mmol/L BUN 25 H (7-17) mg/dL Glucose 102 H (74-99) mg/dL GGT 124 H (0-38) U/L HDL Cholesterol 32.60 L (40.00-60.00) mg/dL Assessment and Plan Assessment: Impression: New onset atrial fibrillation with RVR Acute systolic congestive heart failure, in the setting of atrial fibrillation with RVR. Severe lactic acidosis secondary to poor perfusion related to atrial fibrillation with RVR. Resolved Non-ST elevation myocardial infarction Abdominal aortic aneurysm Abnormal liver enzymes, most likely secondary to hypoperfusion related to atrial fibrillation with RVR. Status post MARTHA cardioversion, successful, done on 04/23/2025 Recommendation: Continue present treatment plan as outlined by cardiology patient seems to be significantly improved compared to yesterday. Patient is scheduled to undergo [facility] as per cardiology on the case. Will continue the same supportive care measures, Transfer patient to 3 S./[facility] cardiac floor Continue to monitor daily x-rays of the chest for congestive heart failure. In the meantime continue Lasix. Will continue to follow. Time with Patient: Less than 30
[2025-04-24] MEDS: AMIODARONE 200 MG TAB PO SCH (13:24)
--- NOTE | 2025-04-24 14:17 | P.TEE ---
Description of Procedure(s): Procedure performed: Transesophageal Echocardiogram with color flow doppler, pulsed wave doppler and continuous wave doppler, synchronized cardioversion Moderate conscious sedation: Moderate conscious sedation was supplied by anesthesia, see separate report. Complications: none Indications: Atrial flutter with RVR PROCEDURE: After the risks, benefits and alternatives of the above mentioned procedure was explained in detail with the patient, informed consent was obtained. Patient was brought to the lab in a fasting state. Patient was given sedation by anesthesia, see separate report. The throat was sprayed with Hurricane to anesthetize the throat. A lubricated Omni probe was then introduced into the esophagus and stomach and multiple views were obtained. 2D echo with color flow doppler, pulsed wave doppler and continuous wave doppler was utilized. Agitated saline bubbles were injected to assess for any intra- atrial shunt. The probe was then removed. There was no thrombus noted and therefore patient underwent synchronized cardioversion x 1 with 200J with resultant sinus rhythm. Patient tolerated the procedure well. Patient was transferred to the post procedure area in stable and satisfactory condition. FINDINGS: 1. The aortic valve is tricuspid and function normally with mild aortic valve sclerosis 2. The mitral valve appears be normal with mild to moderate mitral regurgitation. 3. Tricuspid valve with mild tricuspid regurgitation. 4. The interatrial septum is intact. No evidence of PFO. 5. Left atrial appendage is free of clot. There is diffuse smoke however no organized thrombus. 6. Left ventricular ejection fraction 40%
--- NOTE | 2025-04-24 16:09 | P.PN ---
Subjective Progress Note Date: 04/24/25 HISTORY OF PRESENTING ILLNESS This is a pleasant 74-year-old with past medical history significant for nothing other than occasional alcohol use who presents secondary to increasing shortness of breath. Patient states over the last week she has been feeling more short of breath and also having some increasing lower extremity edema. She states 2 to 3 weeks ago she felt fairly normal. She felt worsening shortness of breath and therefore went to urgent care and then was recommended to go immediately to the ER. She was found to be in A-fib with RVR with heart rates in the 170s with right bundle branch morphology and nonspecific ST depressions. Troponins mildly elevated 0.07 As well as severe lactic acidosis and acidosis with initial lactic acid of 10 and bicarb of 7. She was placed on Cardizem drip with improvement in heart rates and feels much better. Additionally mildly elevated liver enzymes 148 for AST and 91 for ALT with total bilirubin 2.1. She denies any abdominal pain. Denies any GI history. She has not seen a doctor in a few years. She does not smoke, occasional alcohol, no illicit drugs. She did have a CT PE protocol secondary to elevated D-dimer at 5.9 which showed no PE. CT abdomen pelvis showed abdominal aortic aneurysm measuring 3.8 cm as well as mild fatty infiltration of the liver. CT chest showed bilateral pleural effusions. Gallbladder ultrasound showed gallbladder polyp versus gallstone. She is currently on a Cardizem drip at 10. Progress note 04/24/2025 Yesterday underwent MARTHA cardioversion which was successful. MARTHA showed mild to moderate mitral regurgitation, mild aortic valve sclerosis. On today's evaluation she is in sinus rhythm. BP 158/92, heart rate 65 bpm labs shows hemoglobin 13, BUN 25, creatinine 0.9 PHYSICAL EXAMINATION Vital signs reviewed. CONSTITUTIONAL: No apparent distress. HEENT: Head is normocephalic. Pupils are equal, round. Sclerae anicteric. Mucous membranes of the mouth are moist. No JVD. No carotid bruit. CHEST EXAMINATION: +crackles HEART EXAMINATION: Irregular rate and rhythm. S1, S2 heard. No murmurs, gallops or rub. ABDOMEN: Soft, nontender. Positive bowel sounds. EXTREMITIES: 2+ peripheral pulses, no lower extremity edema and no calf tenderness. NEUROLOGIC EXAMINATION: Patient is awake, alert and oriented x3. ASSESSMENT New onset A-fib with RVR Acute on chronic heart failure, unknown systolic versus diastolic Severe lactic acidosis Severe metabolic acidosis with initial bicarb of 7 Non-STEMI likely type II mechanism related to A-fib with RVR Abdominal aortic aneurysm Poor previous follow-up Elevated liver enzymes most likely shock liver PLAN Discontinue amiodarone drip. Start amiodarone 200 mg twice daily Continue Eliquis 5 twice daily, Lasix 40 mg IV twice daily, losartan 50 mg daily, metoprolol 25 mg daily Okay to move out of ICU Outpatient follow-up for stress testing with primary frame stripper and crusher Objective - Vital Signs Vital signs: Vital Signs Temp 98.3 F 04/24/25 12:00 Pulse 65 04/24/25 12:00 Resp 13 04/24/25 12:00 BP 158/92 04/24/25 12:00 Pulse Ox 97 04/24/25 12:00 FiO2 Intake & Output 04/23/25 04/24/25 04/24/25 18:59 06:59 18:59 Intake Total 786.317 45 204.726 Output Total 1315 455 250 Balance -528.683 -410 -45.274 Weight 61.3 kg Intake: IV 60 45 0.9 @ 5 mls/hr 60 45 Intake, IV Titration 726.317 204.726 Amount Amiodarone 360 mg In 99.9 Dextrose 5% in Water 200 ml @ 1 MG/MIN 33.333 mls/ hr IV .Q6H [facility] Rx#: [id number] Amiodarone 450 mg In 204.726 Dextrose 5% in Water 250 ml @ 0.5 MG/MIN 16.667 mls/hr IV .Q15H [facility] Rx#: [id number] Dextrose 5% in Water 100 100 ml @ 618 mls/hr IV .Q10M ONE with Amiodarone 150 mg Rx#:[id number] Dextrose 5% in Water 250 250 ml @ 128 mls/hr IV .Q2H ONE with Amiodarone 300 mg Rx#:[id number] Diltiazem 125 mg In 76.417 Dextrose 5% in Water 100 ml @ 5 MG/HR 5 mls/hr IV .Q24H [facility] Rx#:[id number] Potassium Chloride 10 meq 200 In Water For Injection 1 100ml.bag @ 100 mls/hr IVPB Q1H [facility] Rx#: [id number] Output: Urine 1315 455 250 Other: Voiding Method Indwelling Catheter Indwelling Catheter Indwelling Catheter - Labs CBC & Chem 7: 04/24/25 05:27 04/24/25 05:27 Labs: Abnormal Lab Results - Last 24 Hours (Table) 04/24/25 04/24/25 Range/Units 05:27 05:27 MPV 12.5 H (9.5-12.2) fL Lymphocytes # 0.69 L (0.90-5.00) 10*3/uL Monocytes # 1.34 H (0.20-1.00) 10*3/uL Sodium 132 L (137-145) mmol/L Chloride 96 L (98-107) mmol/L BUN 25 H (7-17) mg/dL Glucose 102 H (74-99) mg/dL
[2025-04-24] MEDS: FUROSEMIDE 10 MG/ML 4 ML VIAL IV SCH (21:17)
[2025-04-25 06:00] LABS: Basophils # (A) 0.03 10*3/uL (0.00-0.10); Basophils % (A) 0.4 %; Eosinophils # (A) 0.17 10*3/uL (0.04-0.35); Eosinophils % (A) 2.3 %; HCT 44.0 % (37.2-46.3); HGB 14.8 g/dL (12.0-15.0); Lymphocytes # (A) 0.52 10*3/uL (0.90-5.00); Lymphocytes % (A) 7.2 %; MCH 31.6 pg (27.0-32.0); MCHC 33.6 g/dL (32.0-37.0); MCV 93.8 fL (80.0-97.0); Monocytes # (A) 0.97 10*3/uL (0.20-1.00); Monocytes % (A) 13.3 %; Neutrophils # (A) 5.56 10*3/uL (1.80-7.70); Neutrophils % (A) 76.5 %; Platelet Count 160 10*3/uL (140-440); RBC 4.69 10*6/uL (4.10-5.20); RDW 14.3 % (11.5-14.5); WBC 7.27 10*3/uL (4.50-10.00)
[2025-04-25 06:26] LABS: African American GFR (CKD) 41 (>60 ml/min/1.73 sqM); Anion Gap 8 mmol/L; Blood Urea Nitrogen 30 mg/dL (7-17); Calcium 9.1 mg/dL (8.4-10.2); Carbon Dioxide 30 mmol/L (22-30); Chloride 100 mmol/L (98-107); Glucose 100 mg/dL (74-99); Magnesium 1.9 mg/dL (1.6-2.3); Non-African American GFR(CKD) 36 (>60 ml/min/1.73 sqM); Potassium 3.1 mmol/L (3.5-5.1); Sodium 138 mmol/L (137-145)
--- NOTE | 2025-04-25 07:40 | XR ---
EXAMINATION TYPE: XR chest 1V portable DATE OF EXAM: 04/25/2025 5:45 AM COMPARISON: 04/24/2025 CLINICAL INDICATION: Female, 74 years old with history of CHF, TECHNIQUE: XR chest 1V portable views of the chest are obtained. FINDINGS: Basilar effusions persist. Suspect underlying atelectasis. Pulmonary venous congestion is stable. The heart is stable. Hilar and mediastinal structures are within normal limits. Degenerative changes are seen of the dorsal spine. IMPRESSION: 1. Essentially stable features of congestive failure. [facility], , 04/25/2025 7:37 AM
[2025-04-25] MEDS: POTASSIUM CHLORIDE ER 20 MEQ TAB.ER PO SCH (08:24)
[2025-04-25] MEDS: SPIRONOLACTONE 25 MG TAB PO SCH (08:32)
--- NOTE | 2025-04-25 10:30 | P.PN ---
Subjective Progress Note Date: 04/25/25 Principal diagnosis: New onset atrial fibrillation with RVR and acute systolic congestive heart failure This is a 74-year-old female, no significant past medical history, presented to the urgent care yesterday with shortness of breath, patient had shortness of breath for about a week prior to her presentation. She was also complaining of increased swelling in her lower extremities. Prior to this patient was feeling great. Over the last week her shortness of breath has become more pronounced, and she went to urgent care where and she was found to be in atrial fibrillation with RVR. Patient was sent to ER at [facility], again she was noted to be in atrial fibrillation with RVR, rate is about 170 with right bundle branch block morphology. And she had nonspecific ST depressions. She was also noted to have lactic acidosis, bicarb was as low as 7 lactic acid was 10 troponin was 0.07. Patient was placed on Cardizem drip and her rate slowed down. She was also noted to have elevated liver enzymes and elevated total bilirubin of 2.1. Patient has not been seen by any physician for many years. She does not smoke, she does drink alcohol occasionally. CT angiogram of the chest was performed because of elevated D-dimer at 5.9, and CT of the abdomen pelvis also showed some aortic aneurysm measuring 3.8 cm. And fatty liver infiltration. On the CT of the chest there was no evidence of PE but there was evidence of small bilateral pleural effusions. Patient was seen by cardiology, and she was changed from Cardizem to amiodarone. The plan is to have the patient undergo MARTHA cardioversion sometime later today. Since yesterday, the patient has made significant clinical improvement, she feels much better, she is still in atrial fibrillation with rate about 104. Denies any chest pain denies any shortness of breath no cough no wheezing no fever no chills no hemoptysis. WBC count is 8.7 hemoglobin 13.7 PTT is 45.6 electrolytes are normal except for low potassium of 3.3. Renal profile is normal troponin 0.086. Bicarb corrected nicely from 7 on initial admission up to 26 patient did not require any bicarb drip. Patient was seen today on 04/24/2025, remains in the ICU however she has been downgraded to 3 S. She is on amiodarone drip at 0.5 mg/min, patient is on Lasix 40 mg daily, on Eliquis, her ejection fraction was 40 to 45%, CT angiogram showed no evidence of pulmonary embolism. Echocardiogram showed LV dysfunction and pulmonary hypertension. Patient underwent MARTHA cardioversion yesterday, she is now in sinus rhythm. She is on 2 L nasal cannula, chest x-ray continues to show evidence of congestive heart failure. Clinically however the patient is comfortable and she does not seem to be in any distress. WBC count is 9.3 hemoglobin 13.9 electrolytes are normal renal profile is normal Seen today on 04/25/2025, patient is an overflow in the ICU, supposed to be going to 3 S. Clinically the patient is doing great, however her chest x-ray is quite abnormal continues to show worsening pulmonary edema in spite of the fact that the patient is on diuretics. Aldactone was added today, patient is comfortable, on room air, O2 sat is 95%, denies any shortness of breath or cough or wheezing. WBC count 7.2 hemoglobin 14.8 electrolytes are normal except for low potassium of 3.1 renal functioning showed a creatinine of 1.46 patient had a picture of ATN from her initial admission. And she had elevated liver enzymes. Echocardiogram showed LV dysfunction ejection fraction 40% and she does have moderate mitral regurgitation. She is in sinus rhythm, comfortable, however chest x-ray is concerning as she is developing worsening congestive heart failure.. Objective - Vital Signs Vital signs: Vital Signs Temp 98.0 F 04/25/25 04:00 Pulse 71 04/25/25 04:00 Resp 14 04/25/25 04:00 BP 124/86 04/25/25 04:00 Pulse Ox 95 04/25/25 04:00 FiO2 Intake & Output 04/24/25 04/25/25 04/25/25 18:59 06:59 18:59 Intake Total 204.726 Output Total 1350 650 600 Balance -1145.274 -650 -600 Weight 57.5 kg Intake: Intake, IV Titration 204.726 Amount Amiodarone 450 mg In 204.726 Dextrose 5% in Water 250 ml @ 0.5 MG/MIN 16.667 mls/hr IV .Q15H [facility] Rx#: [id number] Output: Urine 1350 650 600 Other: Voiding Method Indwelling Catheter Indwelling Catheter - Exam Physical exam revealed a 74-year-old, in no distress, on room air Head: Atraumatic, normocephalic EENT: PERRLA, EOMI, nonicteric, no neck masses, no JVD, no stridor, moist mucous membranes Chest: Symmetrical chest expansion Lungs: Diminished breath sounds at the bases no rhonchi no wheezes Cardiac: Regular rate and rhythm, normal S1-S2, no S3 gallop. Abdomen: Soft nontender no megaly no rebound no guarding good bowel sounds Extremities: No clubbing edema or cyanosis, good pulses bilaterally Musculoskeletal: No deformities and no limitation range of motion Neurologic: Alert oriented x 3 no gross focal neurologic deficit Psychiatric: Normal mood and affect and no mental status examination Skin: No rashes. - Labs CBC & Chem 7: 04/25/25 05:25 04/25/25 05:25 Labs: Abnormal Lab Results - Last 24 Hours (Table) 04/25/25 04/25/25 Range/Units 05:25 05:25 MPV 12.3 H (9.5-12.2) fL Lymphocytes # 0.52 L (0.90-5.00) 10*3/uL Potassium 3.1 L (3.5-5.1) mmol/L BUN 30 H (7-17) mg/dL Creatinine 1.46 H (0.52-1.04) mg/dL Glucose 100 H (74-99) mg/dL Assessment and Plan Assessment: Impression: New onset atrial fibrillation with RVR, resolved, patient required cardioversion/MARTHA cardioversion. Acute systolic congestive heart failure, in the setting of atrial fibrillation with RVR. Severe lactic acidosis secondary to poor perfusion related to atrial fibrillation with RVR. Resolved Non-ST elevation myocardial infarction Abdominal aortic aneurysm Abnormal liver enzymes, most likely secondary to hypoperfusion related to atrial fibrillation with RVR. Acute kidney injury/acute tubular necrosis Status post MARTHA cardioversion, successful, done on 04/23/2025 Recommendation: Continue present supportive care measures Continue diuretics, patient is now on Lasix 40 mg IV push twice daily and [place] ctone 25 mg daily Added Aldactone Continue Eliquis, 5 mg twice daily Continue amiodarone 200 mg p.o. twice daily Transfer patient to 3 S./selective cardiac floor Considering her chest x-ray, not quite ready for discharge. Will continue to follow. Time with Patient: Less than 30
--- NOTE | 2025-04-25 11:10 | P.PN ---
Subjective Progress Note Date: 04/25/25 74 year old F with no significant PMH (has not seen a physician in 20+ years) presents to the ED after being sent from urgent care. She reports dry cough, shortness of breath and wheezing that has been ongoing for the past week. Symptoms initially attributed to change in weather but symptoms did not resolve. Reports PPD smoking for 20 years but quit 26 years ago. Drinks 1 glass of wine 4-5 times a week. She denies any alcohol withdrawal symptoms. Drinks 2 cups of coffee daily. Denies chest pain. No nausea or vomiting. No fever or chills. No abdominal pain, changes in urination or bowel habits. In the ED she underwent extensive evaluation. BP 229/193, HR 56 (as high as 183), T 97.9F, RR 20, 96% on RA. CBC, Coag panel, CMP significant for PT 19.1, INR 1.9, APTT 20.8, Na 130, Cl 97, bicarb 7, BUN 25, glu 140, T. Bili 2.8, AST 126, ALT 71. Lactic acid 10.4. BNP 6500. D-Dimer 5.92. CXR pulmonary vascular congestion. CTA chest neg PE, moderate right and left pleural effusion. CT AP shows abdominal aortic aneurysm 3.8 cm, mild fatty liver infiltration, minimal fluid adjacent to the GB. Patient was started on a Cardizem drip and admitted to ICU for further workup and management. 04/23 Patient was seen and examined. Feeling better. Maintained on Cardizem at 5 mg/hr. Cardiology has added Amiodarone drip with plans for cardioversion later today. Maintain on heparin drip at 12 units/hr. CBC, Coag panel, CMP significant for PT 16, INR 1.5, APTT 45.6, Na 134, K 3.3, BUN 24, T. Bili 2.1, AST 148, ALT 91, alb 3.3. Trop 0.078, 0.071, 0.086. Conjugated 0, Unconjugated 1.1, Delta 0.9. Hep panel negative. GB US shows polpy versus adherent gallstone, minimal fluid adjacent to GB, right pleural effusion. Echo EF 40-45% moderate wall thickeness, no wall motion abnormalities, severe pulm HTN, severe MR, mod MS, mild TR/NM. Venous duplex neg for DVT. CXR shows pulmonary vascular congestion. Lactic acid 1.9. TSH 1.93. 04/24 Patient was seen and examined. Underwent MARTHA and Cardioversion yesterday. Now maintaining sinus. Heparin drip switched to Eliquis, Amidarone + Cardizem discontinued. Maintained on Lasix 40 mg IV QD, negative 2.387L fluid balance over the past 24H. CBC, Coag panel, BMP significant for Na 132, Cl 96, BUN 25. GGT 124. CXR shows pulmonary vascular congestion. 04/25 Patient was seen and examined. Feeling better. Maintained on Lasix 40 mg IV BID, negative 0.938L fluid balance over the past 24H. CBC, BMP significant for K 3.1, BUN 30, Cr 1.46, glu 100. CXR shows pulmonary vascular congestion. General: no distress, appears at stated age Derm: warm, dry Head: atraumatic, normocephalic, symmetric Eyes: EOMI Mouth: no lip lesion, mucus membranes moist Cardiovascular: S1 S2 reg. No murmur. Lungs: Decreased BS bilaterally, no accessory muscle use Abd: Soft. Non tender to palpation Ext: no gross muscle atrophy, trace BL LE edema, no contractures Neuro: No FND Psych: AO x 3 +Soliman Based on my assessment of this patient, this patient meets a high complexity level of care. Atrial fibrillation with RVR: Status post Cardioversion 04/24. Metoprolol 25 mg PO QD. Amiodarone 200 mg PO BID. Eliquis 5 mg PO BID. TSH as above. Cardiology on board. HFrEF exacerbation: Lasix 40 mg IV BID. Strict intake and outtake. Daily weights. Monitor renal function and e-lytes while on Lasix IV. Echo as above. Metoprolol as above and Losartan + Aldactone as below. Cardiology on board. BJ: Likely due to forced diuresis. Monitor renal function. Troponin elevation, likely type II NSTEMI: Troponins flat. Management as above. Hypertension: Metoprolol as above. Losartan 50 mg PO QD. + Aldactone 25 mg PO QD. Monitor vitals, adjust medications if necessary. Hyperbiliruibinemia with Transaminitis: Benign abdominal exam. CT AP shows abdominal aortic aneurysm 3.8 cm, mild fatty liver infiltration, minimal fluid adjacent to the GB. GB US shows polpy versus adherent gallstone, minimal fluid adjacent to GB, right pleural effusion. Conjugated 0, Unconjugated 1.1, Delta 0.9, GGT 124. Hep panel negative. Outpatient GI evaluation recommended. Hyponatremia: Hypervolemic. Improving with Lasix. Monitor. Elevated D-Dimer: CTA chest neg. Venous duplex negative for DVT. Resolved: Hypertensive emergency, Lactic acidosis, HypoK Wean O2. Continue IV lasix. Monitor BP. Anticipate DC in 1-2 days. CODE STATUS: FULL CODE. DVT Prophylaxis: Eliquis GI Prophylaxis: Designated medical POA if patient is not able to make medical decisions for themselves: I have reviewed the following senior management consultant notes: Pulm note. I have reviewed the results of the following tests: CBC, BMP. I have ordered the following tests: BMP + CXR in the AM. I have discussed the care of this patient with the following independent historian: . I have independently interpreted the following test below: CXR I have discussed the management of this patient with the following physician: Objective - Vital Signs Vital signs: Vital Signs Temp 96.9 F L 04/25/25 08:00 Pulse 71 04/25/25 08:00 Resp 26 H 04/25/25 08:00 BP 128/88 04/25/25 08:00 Pulse Ox 94 L 04/25/25 08:00 FiO2 Intake & Output 04/24/25 04/25/25 04/25/25 18:59 06:59 18:59 Intake Total 204.726 Output Total 1350 650 600 Balance -1145.274 -650 -600 Weight 57.5 kg Intake: Intake, IV Titration 204.726 Amount Amiodarone 450 mg In 204.726 Dextrose 5% in Water 250 ml @ 0.5 MG/MIN 16.667 mls/hr IV .Q15H [facility] Rx#: [id number] Output: Urine 1350 650 600 Other: Voiding Method Indwelling Catheter Indwelling Catheter Indwelling Catheter - Labs CBC & Chem 7: 04/25/25 05:25 04/25/25 05:25 Labs: Abnormal Lab Results - Last 24 Hours (Table) 04/25/25 04/25/25 Range/Units 05:25 05:25 MPV 12.3 H (9.5-12.2) fL Lymphocytes # 0.52 L (0.90-5.00) 10*3/uL Potassium 3.1 L (3.5-5.1) mmol/L BUN 30 H (7-17) mg/dL Creatinine 1.46 H (0.52-1.04) mg/dL Glucose 100 H (74-99) mg/dL
[2025-04-25] MEDS: POTASSIUM CHLORIDE ER 20 MEQ TAB.ER PO STA (15:59)
[2025-04-25] MEDS: POTASSIUM BICARBONATE/CIT AC 20 MEQ TABLET.EFF NG-TUBE SCH (16:01)
[2025-04-25] MEDS: METOPROLOL SUCCINATE (ER) 25 MG TAB.ER.24H PO STA (16:47)
[2025-04-25] MEDS: METOPROLOL SUCCINATE (ER) 50 MG TAB.ER.24H PO SCH (21:11)
--- NOTE | 2025-04-26 00:33 | P.PN ---
Subjective Progress Note Date: 04/25/25 HISTORY OF PRESENTING ILLNESS This is a pleasant 74-year-old with past medical history significant for nothing other than occasional alcohol use who presents secondary to increasing shortness of breath. Patient states over the last week she has been feeling more short of breath and also having some increasing lower extremity edema. She states 2 to 3 weeks ago she felt fairly normal. She felt worsening shortness of breath and therefore went to urgent care and then was recommended to go immediately to the ER. She was found to be in A-fib with RVR with heart rates in the 170s with right bundle branch morphology and nonspecific ST depressions. Troponins mildly elevated 0.07 As well as severe lactic acidosis and acidosis with initial lactic acid of 10 and bicarb of 7. She was placed on Cardizem drip with improvement in heart rates and feels much better. Additionally mildly elevated liver enzymes 148 for AST and 91 for ALT with total bilirubin 2.1. She denies any abdominal pain. Denies any GI history. She has not seen a doctor in a few years. She does not smoke, occasional alcohol, no illicit drugs. She did have a CT PE protocol secondary to elevated D-dimer at 5.9 which showed no PE. CT abdomen pelvis showed abdominal aortic aneurysm measuring 3.8 cm as well as mild fatty infiltration of the liver. CT chest showed bilateral pleural effusions. Gallbladder ultrasound showed gallbladder polyp versus gallstone. She is currently on a Cardizem drip at 10. Progress note 04/24/2025 Yesterday underwent MARTHA cardioversion which was successful. MARTHA showed mild to moderate mitral regurgitation, mild aortic valve sclerosis. On today's evaluation she is in sinus rhythm. BP 158/92, heart rate 65 bpm labs shows hemoglobin 13, BUN 25, creatinine 0.9 04/25/2025 Seen in ICU, continuing to be in sinus rhythm. He has been transferred to third [facility] floor. PHYSICAL EXAMINATION Vital signs reviewed. CONSTITUTIONAL: No apparent distress. HEENT: Head is normocephalic. Pupils are equal, round. Sclerae anicteric. Mucous membranes of the mouth are moist. No JVD. No carotid bruit. CHEST EXAMINATION: +crackles HEART EXAMINATION: Irregular rate and rhythm. S1, S2 heard. No murmurs, gallops or rub. ABDOMEN: Soft, nontender. Positive bowel sounds. EXTREMITIES: 2+ peripheral pulses, no lower extremity edema and no calf tenderness. NEUROLOGIC EXAMINATION: Patient is awake, alert and oriented x3. ASSESSMENT New onset A-fib with RVR Acute on chronic heart failure, unknown systolic versus diastolic Severe lactic acidosis Severe metabolic acidosis with initial bicarb of 7 Non-STEMI likely type II mechanism related to A-fib with RVR Abdominal aortic aneurysm Poor previous follow-up Elevated liver enzymes most likely shock liver PLAN Start amiodarone 200 mg twice daily Continue Eliquis 5 twice daily, Lasix 40 mg IV twice daily, losartan 50 mg daily, metoprolol 25 mg daily Outpatient follow-up for stress testing with primary it technician Objective - Vital Signs Vital signs: Vital Signs Temp 98.2 F 04/25/25 20:00 Pulse 77 04/25/25 20:00 Resp 16 04/25/25 20:00 BP 126/92 04/25/25 20:00 Pulse Ox 96 04/25/25 20:00 FiO2 Intake & Output 04/25/25 04/25/25 04/26/25 06:59 18:59 06:59 Intake Total 540 Output Total 650 1300 Balance -650 -760 Weight 57.5 kg Intake: Oral 540 Output: Urine 650 1300 Other: Voiding Method Indwelling Catheter Indwelling Catheter Toilet # Voids 1 - Labs CBC & Chem 7: 04/25/25 05:25 04/25/25 11:48 Labs: Abnormal Lab Results - Last 24 Hours (Table) 04/25/25 04/25/25 04/25/25 Range/Units 05:25 05:25 11:48 MPV 12.3 H (9.5-12.2) fL Lymphocytes # 0.52 L (0.90-5.00) 10*3/uL Potassium 3.1 L 3.2 L (3.5-5.1) mmol/L BUN 30 H (7-17) mg/dL Creatinine 1.46 H (0.52-1.04) mg/dL Glucose 100 H (74-99) mg/dL
[2025-04-26] MEDS: METOPROLOL TARTRATE 50 MG TAB PO STA (01:24)
--- NOTE | 2025-04-26 08:10 | XR ---
EXAMINATION TYPE: XR chest 1V portable DATE OF EXAM: 04/26/2025 7:03 AM COMPARISON: 04/25/2025 CLINICAL INDICATION: Female, 74 years old with history of pleural effusions, TECHNIQUE: XR chest 1V portable views of the chest are obtained. FINDINGS: Demonstrated are scattered senescent parenchymal change. Improving basilar infiltrates and/or atelectasis with small effusions The heart is stable. Hilar and mediastinal structures are within normal limits. Degenerative changes are seen of the dorsal spine. IMPRESSION: 1. Improving basilar infiltrates and/or atelectasis with small effusions [facility], , 04/26/2025 8:07 AM
[2025-04-26 08:34] LABS: African American GFR (CKD) 42 (>60 ml/min/1.73 sqM); Anion Gap 12 mmol/L; Blood Urea Nitrogen 37 mg/dL (7-17); Calcium 10.0 mg/dL (8.4-10.2); Carbon Dioxide 34 mmol/L (22-30); Chloride 93 mmol/L (98-107); Glucose 130 mg/dL (74-99); Non-African American GFR(CKD) 37 (>60 ml/min/1.73 sqM); Potassium 3.7 mmol/L (3.5-5.1); Sodium 139 mmol/L (137-145)
--- NOTE | 2025-04-26 11:52 | P.PN ---
Subjective Progress Note Date: 04/26/25 74 year old F with no significant PMH (has not seen a physician in 20+ years) presents to the ED after being sent from urgent care. She reports dry cough, shortness of breath and wheezing that has been ongoing for the past week. Symptoms initially attributed to change in weather but symptoms did not resolve. Reports PPD smoking for 20 years but quit 26 years ago. Drinks 1 glass of wine 4-5 times a week. She denies any alcohol withdrawal symptoms. Drinks 2 cups of coffee daily. Denies chest pain. No nausea or vomiting. No fever or chills. No abdominal pain, changes in urination or bowel habits. In the ED she underwent extensive evaluation. BP 229/193, HR 56 (as high as 183), T 97.9F, RR 20, 96% on RA. CBC, Coag panel, CMP significant for PT 19.1, INR 1.9, APTT 20.8, Na 130, Cl 97, bicarb 7, BUN 25, glu 140, T. Bili 2.8, AST 126, ALT 71. Lactic acid 10.4. BNP 6500. D-Dimer 5.92. CXR pulmonary vascular congestion. CTA chest neg PE, moderate right and left pleural effusion. CT AP shows abdominal aortic aneurysm 3.8 cm, mild fatty liver infiltration, minimal fluid adjacent to the GB. Patient was started on a Cardizem + Heparin drip and admitted to ICU for further workup and management. Trop 0.078, 0.071, 0.086. Echo EF 40-45% moderate wall thickeness, no wall motion abnormalities, severe pulm HTN, severe MR, mod MS, mild TR/WI. Venous duplex neg for DVT. Underwent cardioversion with MARTHA on 04/23, started on Metoprolol and Amidarone PO. Started on Lasix IV which was transitioned to PO Lasix on 04/26. With regard to her transaminitis, GB US shows polpy versus adherent gallstone, minimal fluid adjacent to GB, right pleural effusion. Conjugated 0, Unconjugated 1.1, Delta 0.9, GGT 124. Hep panel negative. Advised outpatient GI evaluation. 04/26 Patient was seen and examined. Feeling better. Soliman discontinued. Went back into A-Fib RVR overnight, currently rate between 110-120, Cardiology increased Metoprolol to TID dosing. Maintained on Lasix 40 mg IV BID, negative 1.795L fluid balance over the past 24H. BMP significant for Cl 93, bicarb 34, BUN 37, Cr 1.42, glu 130. CXR shows improved pulmonary vascular congestion. General: no distress, appears at stated age Derm: warm, dry Head: atraumatic, normocephalic, symmetric Eyes: EOMI Mouth: no lip lesion, mucus membranes moist Cardiovascular: S1 S2 irreg. No murmur. Lungs: Decreased BS bilaterally, no accessory muscle use Abd: Soft. Non tender to palpation Ext: no gross muscle atrophy, no LE edema, no contractures Neuro: No FND Psych: AO x 3 Based on my assessment of this patient, this patient meets a high complexity lev el of care. Atrial fibrillation with RVR: Status post Cardioversion 04/24. Increased Metoprolol from 25 mg PO QD to 50 mg PO TID. Amiodarone 200 mg PO BID. Eliquis 5 mg PO BID. TSH as above. Cardiology on board. HFrEF exacerbation: Lasix 40 mg IV BID switched to 40 mg PO QD. Strict intake and outtake. Daily weights. Echo as above. Metoprolol as above and Losartan + Aldactone as below. Cardiology on board. BJ: Likely due to forced diuresis. Monitor renal function. Troponin elevation, likely type II NSTEMI: Troponins flat. Recommend outpatient stress test. Cardiology on board. Hypertension: Metoprolol as above. Losartan decreased from 50 to 25 mg PO QD. Aldactone 25 mg PO QD. Monitor vitals, adjust medications if necessary. Hyperbiliruibinemia with Transaminitis: Benign abdominal exam. CT AP shows abdominal aortic aneurysm 3.8 cm, mild fatty liver infiltration, minimal fluid adjacent to the GB. GB US shows polpy versus adherent gallstone, minimal fluid adjacent to GB, right pleural effusion. Conjugated 0, Unconjugated 1.1, Delta 0.9, GGT 124. Hep panel negative. Outpatient GI evaluation recommended. Elevated D-Dimer: CTA chest neg. Venous duplex negative for DVT. Resolved: Hypertensive emergency, Lactic acidosis, HypoK, HypoNa Discussed with Dr. Antonio, monitor for one more day given increase in Metoprolol. Anticipate DC tomorrow if rate controlled. CODE STATUS: FULL CODE. DVT Prophylaxis: Eliquis GI Prophylaxis: Designated medical POA if patient is not able to make medical decisions for themselves: I have reviewed the following investment consultant notes: I have reviewed the results of the following tests: BMP. I have ordered the following tests: BMP in the AM. I have discussed the care of this patient with the following independent historian: . RN. I have independently interpreted the following test below: CXR I have discussed the management of this patient with the following physician: Dr. Antonio. Objective - Vital Signs Vital signs: Vital Signs Temp 97.3 F L 04/26/25 08:01 Pulse 114 H 04/26/25 08:01 Resp 16 04/26/25 08:01 BP 107/78 04/26/25 08:01 Pulse Ox 95 04/26/25 08:01 FiO2 Intake & Output 04/25/25 04/26/25 04/26/25 18:59 06:59 18:59 Intake Total 540 200 Output Total 1300 1500 Balance -760 -1500 200 Weight 52.7 kg Intake: IV 20 Invasive Line 1 10 Invasive Line 2 10 Oral 540 180 Output: Urine 1300 1500 Other: Voiding Method Indwelling Catheter Toilet Toilet # Voids 1 1 - Labs CBC & Chem 7: 04/25/25 05:25 04/26/25 07:32 Labs: Abnormal Lab Results - Last 24 Hours (Table) 04/25/25 04/26/25 Range/Units 11:48 07:32 Potassium 3.2 L (3.5-5.1) mmol/L Chloride 93 L (98-107) mmol/L Carbon Dioxide 34 H (22-30) mmol/L BUN 37 H (7-17) mg/dL Creatinine 1.42 H (0.52-1.04) mg/dL Glucose 130 H (74-99) mg/dL
--- NOTE | 2025-04-26 13:48 | P.PN ---
Subjective Progress Note Date: 04/26/25 HISTORY OF PRESENTING ILLNESS This is a pleasant 74-year-old with past medical history significant for nothing other than occasional alcohol use who presents secondary to increasing shortness of breath. Patient states over the last week she has been feeling more short of breath and also having some increasing lower extremity edema. She states 2 to 3 weeks ago she felt fairly normal. She felt worsening shortness of breath and therefore went to urgent care and then was recommended to go immediately to the ER. She was found to be in A-fib with RVR with heart rates in the 170s with right bundle branch morphology and nonspecific ST depressions. Troponins mildly elevated 0.07 As well as severe lactic acidosis and acidosis with initial lactic acid of 10 and bicarb of 7. She was placed on Cardizem drip with improvement in heart rates and feels much better. Additionally mildly elevated liver enzymes 148 for AST and 91 for ALT with total bilirubin 2.1. She denies any abdominal pain. Denies any GI history. She has not seen a doctor in a few years. She does not smoke, occasional alcohol, no illicit drugs. She did have a CT PE protocol secondary to elevated D-dimer at 5.9 which showed no PE. CT abdomen pelvis showed abdominal aortic aneurysm measuring 3.8 cm as well as mild fatty infiltration of the liver. CT chest showed bilateral pleural effusions. Gallbladder ultrasound showed gallbladder polyp versus gallstone. She is currently on a Cardizem drip at 10. Progress note 04/24/2025 Yesterday underwent MARTHA cardioversion which was successful. MARTHA showed mild to moderate mitral regurgitation, mild aortic valve sclerosis. On today's evaluation she is in sinus rhythm. BP 158/92, heart rate 65 bpm labs shows hemoglobin 13, BUN 25, creatinine 0.9 04/25/2025 Seen in ICU, continuing to be in sinus rhythm. [facility] 04/26/2025 Patient seen and examined. Patient has been transferred out of the intensive care unit and seen today on the cardiac stepdown unit. Patient is currently on IV Lasix 40 mg every 12 hours. Heart rate is running in the 110s to 120s still in atrial fibrillation. Blood pressure 107/78, pulse ox 95% on room air. Re peat blood work reveals BUN 37 creatinine 1.42. PHYSICAL EXAMINATION Vital signs reviewed. CONSTITUTIONAL: No apparent distress. HEENT: Head is normocephalic. Pupils are equal, round. Sclerae anicteric. Mucous membranes of the mouth are moist. No JVD. No carotid bruit. CHEST EXAMINATION: +crackles HEART EXAMINATION: Irregular rate and rhythm. S1, S2 heard. No murmurs, gallops or rub. ABDOMEN: Soft, nontender. Positive bowel sounds. EXTREMITIES: 2+ peripheral pulses, no lower extremity edema and no calf tenderness. NEUROLOGIC EXAMINATION: Patient is awake, alert and oriented x3. ASSESSMENT New onset A-fib with RVR Acute on chronic heart failure, unknown systolic versus diastolic Severe lactic acidosis Severe metabolic acidosis with initial bicarb of 7 Non-STEMI likely type II mechanism related to A-fib with RVR Abdominal aortic aneurysm Poor previous follow-up Elevated liver enzymes most likely shock liver PLAN Continue patient on amiodarone 200 mg twice daily and Eliquis 5 twice daily Increase frequency of metoprolol 50 mg to 3 times daily Change IV Lasix to oral 40 mg daily Outpatient follow-up for stress testing with primary pattern marking supervisor Nurse practitioner note has been reviewed, I agree with documented findings and plan of care. Patient was seen and examined. Objective - Vital Signs Vital signs: Vital Signs Temp 97.3 F L 04/26/25 08:01 Pulse 114 H 04/26/25 08:01 Resp 16 04/26/25 08:01 BP 107/78 04/26/25 08:01 Pulse Ox 95 04/26/25 08:01 FiO2 Intake & Output 04/25/25 04/26/25 04/26/25 18:59 06:59 18:59 Intake Total 540 Output Total 1300 1500 Balance -760 -1500 Weight 52.7 kg Intake: Oral 540 Output: Urine 1300 1500 Other: Voiding Method Indwelling Catheter Toilet # Voids 1 1 - Labs CBC & Chem 7: 04/25/25 05:25 04/26/25 07:32 Labs: Abnormal Lab Results - Last 24 Hours (Table) 04/25/25 04/26/25 Range/Units 11:48 07:32 Potassium 3.2 L (3.5-5.1) mmol/L Chloride 93 L (98-107) mmol/L Carbon Dioxide 34 H (22-30) mmol/L BUN 37 H (7-17) mg/dL Creatinine 1.42 H (0.52-1.04) mg/dL Glucose 130 H (74-99) mg/dL
--- NOTE | 2025-04-26 14:18 | P.PN ---
Subjective Progress Note Date: 04/26/25 Principal diagnosis: Respiratory failure. This is a 74-year-old female, no significant past medical history, presented to the urgent care yesterday with shortness of breath, patient had shortness of breath for about a week prior to her presentation. She was also complaining of increased swelling in her lower extremities. Prior to this patient was feeling great. Over the last week her shortness of breath has become more pronounced, and she went to urgent care where and she was found to be in atrial fibrillation with RVR. Patient was sent to ER at [facility], again she was noted to be in atrial fibrillation with RVR, rate is about 170 with right bundle branch block morphology. And she had nonspecific ST depressions. She was also noted to have lactic acidosis, bicarb was as low as 7 lactic acid was 10 troponin was 0.07. Patient was placed on Cardizem drip and her rate slowed down. She was also noted to have elevated liver enzymes and elevated total bilirubin of 2.1. Patient has not been seen by any physician for many years. She does not smoke, she does drink alcohol occasionally. CT angiogram of the chest was performed because of elevated D-dimer at 5.9, and CT of the abdomen pelvis also showed some aortic aneurysm measuring 3.8 cm. And fatty liver infiltration. On the CT of the chest there was no evidence of PE but there was evidence of small bilateral pleural effusions. Patient was seen by cardiology, and she was changed from Cardizem to amiodarone. The plan is to have the patient undergo MARTHA cardioversion sometime later today. Since yesterday, the patient has made significant clinical improvement, she feels much better, she is still in atrial fibrillation with rate about 104. Denies any chest pain denies any shortness of breath no cough no wheezing no fever no chills no hemoptysis. WBC count is 8.7 hemoglobin 13.7 PTT is 45.6 electrolytes are normal except for low potassium of 3.3. Renal profile is normal troponin 0.086. Bicarb corrected nicely from 7 on initial admission up to 26 patient did not require any bicarb drip. Patient was seen today on 04/24/2025, remains in the ICU however she has been downgraded to 3 S. She is on amiodarone drip at 0.5 mg/min, patient is on Lasix 40 mg daily, on Eliquis, her ejection fraction was 40 to 45%, CT angiogram showed no evidence of pulmonary embolism. Echocardiogram showed LV dysfunction and pulmonary hypertension. Patient underwent MARTHA cardioversion yesterday, she is now in sinus rhythm. She is on 2 L nasal cannula, chest x-ray continues to show evidence of congestive heart failure. Clinically however the patient is comfortable and she does not seem to be in any distress. WBC count is 9.3 hemoglobin 13.9 electrolytes are normal renal profile is normal Seen today on 04/25/2025, patient is an overflow in the ICU, supposed to be going to 3 S. Clinically the patient is doing great, however her chest x-ray is quite abnormal continues to show worsening pulmonary edema in spite of the fact that the patient is on diuretics. Aldactone was added today, patient is comfortable, on room air, O2 sat is 95%, denies any shortness of breath or cough or wheezing. WBC count 7.2 hemoglobin 14.8 electrolytes are normal except for low potassium of 3.1 renal functioning showed a creatinine of 1.46 patient had a picture of ATN from her initial admission. And she had elevated liver enzymes. Echocardiogram showed LV dysfunction ejection fraction 40% and she does have moderate mitral regurgitation. She is in sinus rhythm, comfortable, however chest x-ray is concerning as she is developing worsening congestive heart failure.. Progress note dated April 26, 2025. 74-year-old female seen today in room 371. The patient is currently on room air. She is not receiving any IV fluids. Her chest x-ray is improved. She is in atrial fibrillation, and, her heart rate is less than 100. She is sitting in the chair next to her . She is hoping to be discharged home. Will leave that up to the primary service. Current laboratory data includes sodium 139, potassium 3.7, chlorides 93, CO2 34, anion gap 12, BUN 37, creatinine 1.42. Glucose is 130. Calcium is 10. Chest x-ray is improved. Objective - Vital Signs Vital signs: Vital Signs Temp 97.3 F L 04/26/25 08:01 Pulse 103 H 04/26/25 12:00 Resp 18 04/26/25 12:00 BP 95/65 04/26/25 12:00 Pulse Ox 97 04/26/25 12:00 FiO2 Intake & Output 04/25/25 04/26/25 04/26/25 18:59 06:59 18:59 Intake Total 540 380 Output Total 1300 1500 Balance -760 -1500 380 Weight 52.7 kg Intake: IV 20 Invasive Line 1 10 Invasive Line 2 10 Oral 540 360 Output: Urine 1300 1500 Other: Voiding Method Indwelling Catheter Toilet Toilet # Voids 1 1 1 - Exam No acute distress, oriented 3. Currently on room air. No respiratory distress. HEENT examination is grossly unremarkable. Mucous membranes are moist. No oral lesions. Neck supple. Full range of motion. No adenopathy thyromegaly or neck vein distention. Cardiovascular examination reveals regular rhythm rate. S1-S2 normal. No S3 or S4. No discernible murmur noted. Heart sounds are distant. Lungs reveal clear breath sounds. Breath sounds are equal bilaterally. No adventitious lung sounds including wheezes rhonchi or crackles. Abdomen soft bowel sounds are heard. No masses or tenderness. Extremities are intact. No cyanosis clubbing or edema. Skin is without rash or lesion. Neurologic examination is brief but nonfocal. - Labs CBC & Chem 7: 04/25/25 05:25 04/26/25 07:32 Labs: Abnormal Lab Results - Last 24 Hours (Table) 04/26/25 Range/Units 07:32 Chloride 93 L (98-107) mmol/L Carbon Dioxide 34 H (22-30) mmol/L BUN 37 H (7-17) mg/dL Creatinine 1.42 H (0.52-1.04) mg/dL Glucose 130 H (74-99) mg/dL Assessment and Plan Assessment: New onset atrial fibrillation with RVR. S/P MARTHA, and cardioversion. Acute systolic CHF. Severe lactic acidosis, secondary to poor perfusion, resolved. Non-ST segment elevation myocardial infarction. Abdominal aortic aneurysm. Abnormal liver enzymes. Acute kidney injury/ATN. Plan: Plan dated April 26, 2025. The patient is seen today in room 371. She continues on room air. The patient is not receiving any IV fluids. Her chest x-ray is improved. She still in atrial fibrillation. The patient's heart rate is relatively low. We will continue to follow and make recommendations along the way. Overall prognosis remains guarded. She continues on Eliquis. She also continues on other appropriate medications. Labs, x-rays, and all medications are reviewed. Dictation was produced using [employer] software. Please excuse any grammatical, word or spelling errors. Time with Patient: Less than 30
[2025-04-26] MEDS: METOPROLOL SUCCINATE (ER) 50 MG TAB.ER.24H PO SCH (16:26)
[2025-04-27] MEDS: LOSARTAN 25 MG TAB PO SCH (08:07)
[2025-04-27] MEDS: FUROSEMIDE 40 MG TAB PO SCH (08:07)
[2025-04-27 08:27] LABS: African American GFR (CKD) 45 (>60 ml/min/1.73 sqM); Anion Gap 9 mmol/L; Blood Urea Nitrogen 40 mg/dL (7-17); Calcium 9.4 mg/dL (8.4-10.2); Carbon Dioxide 34 mmol/L (22-30); Chloride 93 mmol/L (98-107); Glucose 124 mg/dL (74-99); Non-African American GFR(CKD) 39 (>60 ml/min/1.73 sqM); Potassium 3.4 mmol/L (3.5-5.1); Sodium 136 mmol/L (137-145)
[2025-04-27 10:28] VITALS: TEMP 97.4
[2025-04-27 11:41] VITALS: BP 149/86; PULSE 108; RESP 16
--- NOTE | 2025-04-27 12:16 | P.PN ---
Subjective Progress Note Date: 04/27/25 HISTORY OF PRESENTING ILLNESS This is a pleasant 74-year-old with past medical history significant for nothing other than occasional alcohol use who presents secondary to increasing shortness of breath. Patient states over the last week she has been feeling more short of breath and also having some increasing lower extremity edema. She states 2 to 3 weeks ago she felt fairly normal. She felt worsening shortness of breath and therefore went to urgent care and then was recommended to go immediately to the ER. She was found to be in A-fib with RVR with heart rates in the 170s with right bundle branch morphology and nonspecific ST depressions. Troponins mildly elevated 0.07 As well as severe lactic acidosis and acidosis with initial lactic acid of 10 and bicarb of 7. She was placed on Cardizem drip with improvement in heart rates and feels much better. Additionally mildly elevated liver enzymes 148 for AST and 91 for ALT with total bilirubin 2.1. She denies any abdominal pain. Denies any GI history. She has not seen a doctor in a few years. She does not smoke, occasional alcohol, no illicit drugs. She did have a CT PE protocol secondary to elevated D-dimer at 5.9 which showed no PE. CT abdomen pelvis showed abdominal aortic aneurysm measuring 3.8 cm as well as mild fatty infiltration of the liver. CT chest showed bilateral pleural effusions. Gallbladder ultrasound showed gallbladder polyp versus gallstone. She is currently on a Cardizem drip at 10. Progress note 04/24/2025 Yesterday underwent MARTHA cardioversion which was successful. MARTHA showed mild to moderate mitral regurgitation, mild aortic valve sclerosis. On today's evaluation she is in sinus rhythm. BP 158/92, heart rate 65 bpm labs shows hemoglobin 13, BUN 25, creatinine 0.9 04/25/2025 Seen in ICU, continuing to be in sinus rhythm. He has been transferred to third [facility] floor. 04/26/2025 Patient seen and examined. Patient has been transferred out of the intensive care unit and seen today on the cardiac stepdown unit. Patient is currently on IV Lasix 40 mg every 12 hours. Heart rate is running in the 110s to 120s still in atrial fibrillation. Blood pressure 107/78, pulse ox 95% on room air. Re peat blood work reveals BUN 37 creatinine 1.42. 04/27/2025 Patient seen and examined. Patient had 1 blood pressure reading of 180/80 repeat was 149/86, heart rate running right about 105. Pulse ox 96% on room air. Repeat blood work reveals potassium 3.4, BUN 40 and creatinine 1.35. Patient has been transition to oral Lasix and yesterday we increased the frequency of metoprolol 50 mg to 3 times daily PHYSICAL EXAMINATION Vital signs reviewed. CONSTITUTIONAL: No apparent distress. HEENT: Head is normocephalic. Pupils are equal, round. Sclerae anicteric. Mucous membranes of the mouth are moist. No JVD. No carotid bruit. CHEST EXAMINATION: +crackles HEART EXAMINATION: Irregular rate and rhythm. S1, S2 heard. No murmurs, gallops or rub. ABDOMEN: Soft, nontender. Positive bowel sounds. EXTREMITIES: 2+ peripheral pulses, no lower extremity edema and no calf tenderness. NEUROLOGIC EXAMINATION: Patient is awake, alert and oriented x3. ASSESSMENT New onset A-fib with RVR Acute on chronic heart failure, unknown systolic versus diastolic Severe lactic acidosis Severe metabolic acidosis with initial bicarb of 7 Non-STEMI likely type II mechanism related to A-fib with RVR Abdominal aortic aneurysm Poor previous follow-up Elevated liver enzymes most likely shock liver PLAN Continue patient on amiodarone 200 mg twice daily and Eliquis 5 twice daily Transition metoprolol succinate 50 mg 3 times daily to metoprolol tartrate 50 mg 3 times daily Continue Lasix oral 40 mg daily Outpatient follow-up for stress testing with primary tour guide Patient is cleared for discharge from cardiology perspective and will follow-up with Dr. Montes De Oca per their request to be at the [place] office near her home. Nurse practitioner note has been reviewed, I agree with documented findings and plan of care. Patient was seen and examined. Objective - Vital Signs Vital signs: Vital Signs Temp 97.8 F 04/27/25 04:00 Pulse 99 04/27/25 04:00 Resp 16 04/27/25 04:00 BP 120/82 04/27/25 04:00 Pulse Ox 96 04/27/25 04:00 FiO2 Intake & Output 04/26/25 04/27/25 04/27/25 18:59 06:59 18:59 Intake Total 580 Balance 580 Weight 52.5 kg Intake: IV 40 Invasive Line 1 20 Invasive Line 2 20 Oral 540 Other: Voiding Method Toilet Toilet # Voids 1 2 - Labs CBC & Chem 7: 04/25/25 05:25 04/27/25 07:08 Labs: Abnormal Lab Results - Last 24 Hours (Table) 04/26/25 04/27/25 Range/Units 07:32 07:08 Sodium 136 L (137-145) mmol/L Potassium 3.4 L (3.5-5.1) mmol/L Chloride 93 L 93 L (98-107) mmol/L Carbon Dioxide 34 H 34 H (22-30) mmol/L BUN 37 H 40 H (7-17) mg/dL Creatinine 1.42 H 1.35 H (0.52-1.04) mg/dL Glucose 130 H 124 H (74-99) mg/dL
--- NOTE | 2025-04-27 13:04 | P.DS ---
Providers Date of admission: 04/22/25 14:48 Attending physician: Thor Epstein Consults: 04/22/25 14:48 Consult Physician Stat Consulting Provider: Reed Olmstead Consult Reason/Comments: afib with rvr, acute chf Do you want consulting provider notified?: Already Contacted 04/24/25 17:08 Consult Physician Urgent Consulting Provider: Cristóbal Montes De Oca Consult Reason/Comments: afib Do you want consulting provider notified?: Already Contacted Primary care physician: Stated None Hospital Course: Discharge Diagnosis: A-fib with RVR HFrEF exacerbation BJ, resolved Troponin elevation, likely type II NSTEMI Hypertension Hyperbilirubinemia with transaminitis Hospital Course: 74 year old F with no significant PMH (has not seen a physician in 20+ years) presents to the ED after being sent from urgent care. She reports dry cough, shortness of breath and wheezing that has been ongoing for the past week. Symptoms initially attributed to change in weather but symptoms did not resolve. Reports PPD smoking for 20 years but quit 26 years ago. Drinks 1 glass of wine 4-5 times a week. She denies any alcohol withdrawal symptoms. Drinks 2 cups of coffee daily. Denies chest pain. No nausea or vomiting. No fever or chills. No abdominal pain, changes in urination or bowel habits. In the ED she underwent extensive evaluation. BP 229/193, HR 56 (as high as 183), T 97.9F, RR 20, 96% on RA. CBC, Coag panel, CMP significant for PT 19.1, INR 1.9, APTT 20.8, Na 130, Cl 97, bicarb 7, BUN 25, glu 140, T. Bili 2.8, AST 126, ALT 71. Lactic acid 10.4. BNP 6500. D-Dimer 5.92. CXR pulmonary vascular congestion. CTA chest neg PE, moderate right and left pleural effusion. CT AP shows abdominal aortic aneurysm 3.8 cm, mild fatty liver infiltration, minimal fluid adjacent to the GB. Patient was started on a Cardizem + Heparin drip and admitted to ICU for further workup and management. Trop 0.078, 0.071, 0.086. Echo EF 40-45% moderate wall thickeness, no wall motion abnormalities, severe pulm HTN, severe MR, mod MS, mild TR/OK. Venous duplex neg for DVT. Underwent cardioversion with MARTHA on 04/23, started on Metoprolol and Amidarone PO. Started on Lasix IV which was transitioned to PO Lasix on 04/26. With regard to her transaminitis, GB US shows polpy versus adherent gallstone, minimal fluid adjacent to GB, right pleural effusion. Conjugated 0, Unconjugated 1.1, Delta 0.9, GGT 124. Hep panel negative. Advised outpatient GI evaluation. 04/27: Seen examined at bedside, patient does not have any acute or new concerns, no active complaints, her metoprolol was increased to 3 times daily as she maintained good heart rate and blood pressure. Patient will be discharged with cardiology clearance, follow-up with GI, cardiology, PCP. Patient's at bedside, agrees with plan. Heart failure recommendations provided in the AVS Patient seen and examined at bedside. Vital signs reviewed and stable. General: [nontoxic], [no distress], [appears at stated age] Derm: [warm], [dry] Head: [atraumatic], [normocephalic], [symmetric] Eyes: [EOMI], [no lid lag], [anicteric sclera] Mouth: [no lip lesion], [mucus membranes moist] Cardiovascular: [S1S2 irreg], [no murmur] Lungs: [CTA bilateral], [no rhonchi, no rales] , [no accessory muscle use] Abdominal: [soft], [ nontender to palpation], [no guarding], [no appreciable organomegaly] Ext: [no gross muscle atrophy], [no edema], [no contractures] Neuro: [ CN II-XI grossly intact], [no focal neuro deficits] Psych: [Alert], [oriented], [appropriate affect] A total of 40 minutes of time were spent preparing this complex discharge s awacarmenza. Patient was discharged on 04/27. Patient Condition at Discharge: Critical Plan - Discharge Summary Discharge Rx Participant: Yes New Discharge Prescriptions: New Apixaban [Eliquis] 5 mg PO BID #60 tab Metoprolol Tartrate [Lopressor] 50 mg PO TID #90 tab Spironolactone [Aldactone] 25 mg PO DAILY #30 tab Amiodarone [Cordarone] 200 mg PO BID #60 tab Losartan [Cozaar] 25 mg PO DAILY #30 tab Furosemide [Lasix] 40 mg PO DAILY #30 tab Discharge Medication List Amiodarone [Cordarone] 200 mg PO BID #60 tab 04/27/25 [Rx] Apixaban [Eliquis] 5 mg PO BID #60 tab 04/27/25 [Rx] Furosemide [Lasix] 40 mg PO DAILY #30 tab 04/27/25 [Rx] Losartan [Cozaar] 25 mg PO DAILY #30 tab 04/27/25 [Rx] Metoprolol Tartrate [Lopressor] 50 mg PO TID #90 tab 04/27/25 [Rx] Spironolactone [Aldactone] 25 mg PO DAILY #30 tab 04/27/25 [Rx] Follow up Appointment(s)/Referral(s): Cristóbal Montes De Oca DO [STAFF PHYSICIAN] - 1 Week (Office to call with appointment date and time.) Wing Jovel MD [REFERRING] - 1-2 days (Office is unable to schedule an appointment at this time.) Patient Instructions/Handouts: A-fib (Atrial Fibrillation) (DC), Heart Failure (DC), Low-Sodium Diet (DC) Activity/Diet/Wound Care/Special Instructions: Please, follow-up with your primary care physician and steward/stewardess night. Please take all the medications as prescribed. Please, monitor your blood pressure daily, keep a log of the readings to discuss with your heart doctor and your primary care provider. Follow low-salt diet as provided in the AVS. Check your weight daily and again keep a log of the readings. What to Expect at Home Your energy will slowly return. You may need help taking care of yourself when you first get home. You may feel sad or depressed. All of these things are normal. Checking Yourself at Home Weigh yourself every morning on the same scale when you get up -- before you eat but after you use the bathroom. Make sure you are wearing similar clothing each time you weigh yourself. Write down your weight every day on a chart so that you can keep track of it.Call your doctor or nurse advice line if you have a sudden weight gain, such as more than 1 to 1.3 kilograms (2 to 3 pounds) in a day or 2.3 kilograms (5 pounds) in a week. (Your doctor may suggest a different range of weight gain.) A sudden weight gain may mean that your heart failure is getting worse. Throughout the day, ask yourself: Is my energy level normal? Do I get more short of breath when I am doing my everyday activities? Are my clothes or shoes feeling tight? Are my ankles or legs swelling? Am I coughing more often? Does my cough sound wet? Do I get short of breath at night or when I lie down? If you are having new (or different) symptoms, ask yourself: Did I eat something different than usual or try a new food? Did I take all of my medicines the right way at the right times? Diet and Fluids Your health care provider may ask you to limit how much you drink. When your heart failure is not very severe, you may not have to limit your fluids too much. As your heart failure gets worse, you may be asked to limit fluids to 6 to 9 cups (1.5 to 2 liters) a day. You will need to eat less salt. Salt can make you thirsty, and being thirsty can cause you to drink too much fluid. Extra salt also makes fluid stay in your body. Lots of foods that do not taste salty, or that you do not add salt to, still contain a lot of salt. You may need to take a diuretic, or water pill. Do not drink alcohol. Alcohol makes it harder for your heart muscles to work. Ask your provider what to do on special occasions where alcohol and foods you are trying to avoid will be served. If you smoke, stop. Ask for help quitting if you need it. Do not let anybody smoke in your home. Learn more about what you should eat to make your heart and blood vessels healthier. Avoid fatty foods. Stay away from fast-food restaurants. Avoid some prepared and frozen foods. Learn fast food tips. Try to stay away from things that are stressful for you. If you feel stressed all the time, or if you are very sad, talk with your provider who can refer you to a counselor. Discharge Disposition: HOME SELF-CARE
--- NOTE | 2025-04-27 13:06 | P.PN ---
Subjective Progress Note Date: 04/27/25 Principal diagnosis: Respiratory failure. This is a 74-year-old female, no significant past medical history, presented to the urgent care yesterday with shortness of breath, patient had shortness of breath for about a week prior to her presentation. She was also complaining of increased swelling in her lower extremities. Prior to this patient was feeling great. Over the last week her shortness of breath has become more pronounced, and she went to urgent care where and she was found to be in atrial fibrillation with RVR. Patient was sent to ER at [facility], again she was noted to be in atrial fibrillation with RVR, rate is about 170 with right bundle branch block morphology. And she had nonspecific ST depressions. She was also noted to have lactic acidosis, bicarb was as low as 7 lactic acid was 10 troponin was 0.07. Patient was placed on Cardizem drip and her rate slowed down. She was also noted to have elevated liver enzymes and elevated total bilirubin of 2.1. Patient has not been seen by any physician for many years. She does not smoke, she does drink alcohol occasionally. CT angiogram of the chest was performed because of elevated D-dimer at 5.9, and CT of the abdomen pelvis also showed some aortic aneurysm measuring 3.8 cm. And fatty liver infiltration. On the CT of the chest there was no evidence of PE but there was evidence of small bilateral pleural effusions. Patient was seen by cardiology, and she was changed from Cardizem to amiodarone. The plan is to have the patient undergo MARTHA cardioversion sometime later today. Since yesterday, the patient has made significant clinical improvement, she feels much better, she is still in atrial fibrillation with rate about 104. Denies any chest pain denies any shortness of breath no cough no wheezing no fever no chills no hemoptysis. WBC count is 8.7 hemoglobin 13.7 PTT is 45.6 electrolytes are normal except for low potassium of 3.3. Renal profile is normal troponin 0.086. Bicarb corrected nicely from 7 on initial admission up to 26 patient did not require any bicarb drip. Patient was seen today on 04/24/2025, remains in the ICU however she has been downgraded to 3 S. She is on amiodarone drip at 0.5 mg/min, patient is on Lasix 40 mg daily, on Eliquis, her ejection fraction was 40 to 45%, CT angiogram showed no evidence of pulmonary embolism. Echocardiogram showed LV dysfunction and pulmonary hypertension. Patient underwent MARTHA cardioversion yesterday, she is now in sinus rhythm. She is on 2 L nasal cannula, chest x-ray continues to show evidence of congestive heart failure. Clinically however the patient is comfortable and she does not seem to be in any distress. WBC count is 9.3 hemoglobin 13.9 electrolytes are normal renal profile is normal Seen today on 04/25/2025, patient is an overflow in the ICU, supposed to be going to 3 S. Clinically the patient is doing great, however her chest x-ray is quite abnormal continues to show worsening pulmonary edema in spite of the fact that the patient is on diuretics. Aldactone was added today, patient is comfortable, on room air, O2 sat is 95%, denies any shortness of breath or cough or wheezing. WBC count 7.2 hemoglobin 14.8 electrolytes are normal except for low potassium of 3.1 renal functioning showed a creatinine of 1.46 patient had a picture of ATN from her initial admission. And she had elevated liver enzymes. Echocardiogram showed LV dysfunction ejection fraction 40% and she does have moderate mitral regurgitation. She is in sinus rhythm, comfortable, however chest x-ray is concerning as she is developing worsening congestive heart failure.. Progress note dated April 26, 2025. 74-year-old female seen today in room 371. The patient is currently on room air. She is not receiving any IV fluids. Her chest x-ray is improved. She is in atrial fibrillation, and, her heart rate is less than 100. She is sitting in the chair next to her . She is hoping to be discharged home. Will leave that up to the primary service. Current laboratory data includes sodium 139, potassium 3.7, chlorides 93, CO2 34, anion gap 12, BUN 37, creatinine 1.42. Glucose is 130. Calcium is 10. Chest x-ray is improved. Progress note dated April 27, 2025. 74-year-old female seen today in room 371. The patient is currently on room air. She is not receiving any IV fluids. The patient is sitting in the chair, next to the hospital bed. Her , is sitting on the hospital bed, and is hoping the patient can be discharged. She denies any shortness of breath, cough, wheezing, chest tightness, or phlegm production. She is not short of breath on exertion. Current laboratory data includes a sodium 136, potassium 3.4, chloride 93, CO2 34, anion gap 9, BUN 40, creatinine 1.35, and glucose 124. Chest x-ray, from yesterday, was reviewed. Objective - Vital Signs Vital signs: Vital Signs Temp 97.4 F L 04/27/25 08:05 Pulse 108 H 04/27/25 11:30 Resp 16 04/27/25 11:30 BP 149/86 04/27/25 11:30 Pulse Ox 96 04/27/25 11:30 FiO2 Intake & Output 04/26/25 04/27/25 04/27/25 18:59 06:59 18:59 Intake Total 580 138 Balance 580 138 Weight 52.5 kg Intake: IV 40 20 Invasive Line 1 20 10 Invasive Line 2 20 10 Oral 540 118 Other: Voiding Method Toilet Toilet Toilet # Voids 1 2 - Exam No acute distress, oriented 3. Currently on room air. No respiratory distress. HEENT examination is grossly unremarkable. Mucous membranes are moist. No oral lesions. Neck supple. Full range of motion. No adenopathy thyromegaly or neck vein distention. Cardiovascular examination reveals regular rhythm rate. S1-S2 normal. No S3 or S4. No discernible murmur noted. Heart sounds are distant. Lungs reveal clear breath sounds. Breath sounds are equal bilaterally. No adventitious lung sounds including wheezes rhonchi or crackles. Abdomen soft bowel sounds are heard. No masses or tenderness. Extremities are intact. No cyanosis clubbing or edema. Skin is without rash or lesion. Neurologic examination is brief but nonfocal. - Labs CBC & Chem 7: 04/25/25 05:25 04/27/25 07:08 Labs: Abnormal Lab Results - Last 24 Hours (Table) 04/27/25 Range/Units 07:08 Sodium 136 L (137-145) mmol/L Potassium 3.4 L (3.5-5.1) mmol/L Chloride 93 L (98-107) mmol/L Carbon Dioxide 34 H (22-30) mmol/L BUN 40 H (7-17) mg/dL Creatinine 1.35 H (0.52-1.04) mg/dL Glucose 124 H (74-99) mg/dL Assessment and Plan Assessment: New onset atrial fibrillation with RVR. S/P MARTHA, and cardioversion. Acute systolic CHF. Severe lactic acidosis, secondary to poor perfusion, resolved. Non-ST segment elevation myocardial infarction. Abdominal aortic aneurysm. Abnormal liver enzymes. Acute kidney injury/ATN. Plan: Plan dated April 26, 2025. The patient is seen today in room 371. She continues on room air. The patient is not receiving any IV fluids. Her chest x-ray is improved. She still in atrial fibrillation. The patient's heart rate is relatively low. We will continue to follow and make recommendations along the way. Overall prognosis remains guarded. She continues on Eliquis. She also continues on other appropriate medications. Labs, x-rays, and all medications are reviewed. Dictation was produced using [employer] software. Please excuse any grammatical, word or spelling errors. Plan dated April 27, 2025. The patient is doing very well. She is on room air. She is sitting in a chair next to the bed. Her sitting on the bed. She denies any shortness of breath, cough, wheezing, chest tightness, or phlegm production. The patient is hoping to be discharged sometime today. Labs, x-rays, and all medications are reviewed. Prognosis is thought to be generally good. We will continue to follow, should the patient not be discharged. Dictation was produced using [employer] software. Please excuse any grammatical, word or spelling errors. Time with Patient: Less than 30
[2025-04-27] MEDS ORDERED: METOPROLOL TARTRATE 50 MG TAB PO SCH (16:00)
== END 2025-04-27 14:49 | disposition home or self-care (01) | DRG 280 ==
LOC: EC 10:12 → 2SICU 14:48 → 3SCARD 04-25 13:00
PROVIDERS: ADMIT Student in an Organized Health Care Education/Training Program; ATTEND Student in an Organized Health Care Education/Training Program
PROC: B246ZZ4 Ultrasonography of Right and Left Heart, Transesophageal (ICD-10-PCS; principal; 2025-04-23 07:30)
PROC: 5A2204Z Restoration of Cardiac Rhythm, Single (ICD-10-PCS; principal; 2025-04-23 07:30)
DX: I48.91 Unspecified atrial fibrillation (principal); I50.23 Acute on chronic systolic (congestive) heart failure; I21.A1 Myocardial infarction type 2; K72.00 Acute and subacute hepatic failure without coma; N17.0 Acute kidney failure with tubular necrosis; I11.0 Hypertensive heart disease with heart failure; I27.20 Pulmonary hypertension, unspecified; I71.40 Abdominal aortic aneurysm, without rupture, unspecified; I08.0 Rheumatic disorders of both mitral and aortic valves; K76.0 Fatty (change of) liver, not elsewhere classified; I16.1 Hypertensive emergency; E87.1 Hypo-osmolality and hyponatremia; E87.20 Acidosis, unspecified; T50.1X5A Adverse effect of loop [high-ceiling] diuretics, initial encounter; K80.20 Calculus of gallbladder without cholecystitis without obstruction; E87.6 Hypokalemia; I25.2 Old myocardial infarction; I45.10 Unspecified right bundle-branch block; R79.1 Abnormal coagulation profile; Z79.01 Long term (current) use of anticoagulants; Z79.899 Other long term (current) drug therapy; Z82.49 Family history of ischemic heart disease and other diseases of the circulatory system; Z87.891 Personal history of nicotine dependence
CPT/HCPCS: 36415; 71045; 71046; 71275; 74177; 76705; 80048; 80053; 80061; 80074; 82248; 82977; 83605; 83735; 83880; 84132; 84443; 84484; 85025; 85379; 85610; 85730; 92960; 93005; 93306; 93312; 93320; 93325; 93970; 94760; 96365; 96366; 99285